=== PATIENT | female | born 1990 | race Caucasian/White ===

== ENCOUNTER 2022-02-21 13:40 | Emergency (ER) | payer OTHER, SELFPAY ==
[2022-02-21 13:51] VITALS: BP 152/115; PULSE 85; RESP 18; TEMP 36.6; O2SAT 100; BMI 32.5
[2022-02-21 14:43] VITALS: BP 132/94; PULSE 80; RESP 22; TEMP 37.3; O2SAT 99
--- NOTE | 2022-02-21 15:01 | CRLHL7_ITS ---
For Patients: As a result of the Century Cures Act, medical imaging exams and procedure reports are released immediately into your electronic medical record. You may view this report before your referring provider. If you have questions, please contact your health care provider. INDICATION: SOB TECHNIQUE: Chest 2 views. COMPARISON: None. FINDINGS: Cardiovascular and mediastinum: Heart size and vasculature are normal in caliber and appearance. Mediastinum is within normal limits. Lungs and pleural spaces: Lungs are clear. No sign of infiltrate or mass. No sign of pleural effusion. No pneumothorax. Bones and soft tissues: No significant findings. IMPRESSION: Unremarkable chest. Dictated by: Jim Lewis MD @ 02/21/2022 15:33:15 (Electronically Signed)
--- NOTE | 2022-02-21 15:03 | ED.GENADULT ---
HPI - General Adult General Chief complaint: Unspecified Complaint, Adult Stated complaint: Difficulty breathing,dizzy Time Seen by Provider: 02/21/22 14:37 History of Present Illness HPI narrative: This 31-year-old female comes in reporting a couple weeks of episodes of feeling short of breath and lightheaded. She attach is anxiety she to each of these episodes. She states that she has a history of some anxiety that she has learned to deal with in the past but over the past couple weeks and more recently in the kit past couple days she is having these symptoms. She does not report any fevers or cough. She states that she feels short of breath but it is not that she cannot move air it is more that she feels her breathing isn't right. She states that her mother was diagnosed with a lung cancer that led to more more health problems. Some of this family history contributes to her her anxiety today. Related Data Previous Rx's Medication Instructions Recorded lorazepam 0.5 mg tablet (Ativan) 0.5 mg PO BID PRN #10 tabs 02/21/22 Allergies Allergy/AdvReac Type Severity Reaction Status Date / Time No Known Drug Allergies Allergy Verified 02/21/22 13:55 Review of Systems Status of ROS: Reports: 10 or more systems reviewed and unremarkable except as noted in History and below Narrative: Constitutional: No fevers, no weight gain or loss. Eyes: No discharge. No vision changes. HENT: No congestion, no sore throat, no ear pain. Cardiovascular: No chest pain, no palpitations. Respiratory: No wheezes, no cough. She reports shortness of breath at which she clarifies as a feeling like she is not moving air well enough. Gastrointestinal: No abdominal pain, no vomiting, no diarrhea. Genitourinary: No dysuria, no hematuria. Musculoskeletal: Normal range of motion. Skin: No rashes, no pruritis. Neurological: No weakness, sensory change, speech change. She has some lightheadedness symptoms at times. Endo/Heme/Allergies: No bruising or bleeding. No polydipsia. Pysch: no suicidality, no insomnia. She reports anxiety symptoms. All other systems reviewed and are negative. PFSH PFSH Social History Smoking Status: Never smoker How often do you have a drink containing alcohol: monthly or less AUDIT-C Alcohol total score: 1 Non-prescribed substance use: denies use Exam Narrative: Exam Narrative: Constitutional: Well-developed, well-nourished, no acute distress. HEENT: Normocephalic, atraumatic. Neck: Normal range of motion. Nontender. Supple. Heart: Regular. No murmurs. Normal rate. Intact distal pulses. Lungs: Clear to auscultation. No chest discomfort. No wheezes, rhonchi, or rales. Abdomen: Normal bowel sounds. Nontender. No rebound tenderness. Genitalia: Deferred. Back: No midline tenderness. Normal range of motion. Extremities: Normal range of motion. No injury. Skin: Intact. No rash. Warm. No erythema or pallor. Neurologic: No altered sensation. No weakness. Alert and oriented. Psychiatric: No suicidality. No depression. No insomnia. She displays anxiety regarding these symptoms she is describing. Nursing notes and vitals signs are reviewed. Const: Vital Signs, click to edit/add: Vital Signs - 24 hr 02/21/22 13:51 02/21/22 14:43 Temperature 98 F 99.1 F Pulse Rate [Right Pulse Oximeter] 85 80 Respiratory Rate Blood Pressure [Ri ght Upper Arm] 152/115 H 132/94 H Pulse Oximetry 100 99 Oxygen Delivery Me thod Room Air Room Air Course Vital Signs Vital signs: Initial Vital Signs Temperature 98 F 02/21/22 13:51 Temperature Source Temporal Artery Scan 02/21/22 13:51 Pulse Rate 85 02/21/22 13:51 Respiratory Rate 18 02/21/22 13:51 Blood Pressure 152/115 H 02/21/22 13:51 Blood Pressure Mean 127 02/21/22 13:51 Blood Pressure Position Sitting 02/21/22 13:51 Pulse Oximetry 100 02/21/22 13:51 Oxygen Delivery Method 02/21/22 13:51 Vital Signs Temperature 98 F 02/21/22 13:51 Pulse Rate 85 02/21/22 13:51 Respiratory Rate 18 02/21/22 13:51 Blood Pressure 152/115 H 02/21/22 13:51 Pulse Oximetry 100 02/21/22 13:51 Oxygen Delivery Method 02/21/22 13:51 Temperature 99.1 F 02/21/22 14:43 Pulse Rate 80 02/21/22 14:43 Respiratory Rate 22 02/21/22 14:43 Blood Pressure 132/94 H 02/21/22 14:43 Pulse Oximetry 99 02/21/22 14:43 Oxygen Delivery Method 02/21/22 14:43 Medical Decision Making MDM Narrative Medical decision making narrative: This patient comes in with nonspecific reports of episodes of shortness of breath and lightheadedness. These symptoms are accompanied with anxiety however the patient states that she really is not an anxious person. However she has been dealing with her mother's lung cancer diagnosis for. Her mother is doing well but she wonders if she might have something by way of family history. She also states that she has taken on extra rolls at work and is managing lots of stressful situations in generally does pretty well with this. A chest x-ray and labs were ordered and these returned with all normal results. This was very reassuring to the patient. I advised her to follow-up with her primary physician. I did provide a prescription for 10 tablets of Ativan 0.5 mg that can be used as needed and directed. She understands that any further use of this type of medicine will need to come from her regular doctor. Lab Data Labs: Lab Results 02/21/22 02/21/22 02/21/22 Range/Units 15:16 15:16 15:16 WBC 6.41 (4.50-11.00) K/uL RBC 4.13 (4.00-5.20) m/uL Hgb 13.6 (12.0-16.0) gm/dL Hct 38.5 (33.0-51.0) % MCV 93 (80-100) fL MCH 33 (26-34) pg MCHC 35 (32-36) gm/dL RDW Coeff of Danial 11.6 (11.5-15.5) % Plt Count 177 (140-440) K/uL Neut % (Auto) 56.8 (42.0-72.0) % Lymph % (Auto) 32.1 (20-44) % [place] % (Auto) 6.6 (0.0-11.0) % Eos % (Auto) 3.3 (0.0-7.0) % Baso % (Auto) 0.6 (0.0-3.0) % Neut # (Auto) 3.64 (1.7-7.0) K/uL Lymph # (Auto) 2.06 (0.90-2.90) K/uL [place] # (Auto) 0.40 (0.00-0.90) K/UL Eos # (Auto) 0.21 (0.00-0.50) K/uL Baso # (Auto) 0.04 (0.00-0.30) K/uL Abs Immat Gran (auto) 0.04 (0.00-0.30) K/uL Sodium 137 (135-149) mmol/L Potassium 3.9 (3.6-5.1) mmol/L Chloride 103 (96-114) mmol/L Carbon Dioxide 25 (20-32) mmol/L BUN 15 (5-24) mg/dL Creatinine 0.8 (0.5-1.5) mg/dL Estimated Creat Clear 104.53 Estimated GFR 100 ml/min Glucose 107 (60-115) mg/dL Calcium 9.0 (8.4-10.6) mg/dL C-Reactive Protein 0.5 (0.5-1.0) mg/dL Imaging Data Chest x-ray: Radiologist's impression: Unremarkable chest. Discharge Plan Discharge Clinical Impression: Anxiety Condition: Stable Instructions: Anxiety (ED) Additional Instructions: Take medication as needed and prescribed. Follow up with primary physician or return if worsening. Prescriptions: New lorazepam [Ativan] 0.5 mg tablet 0.5 mg PO BID PRNQty: 10 0RF Follow Up/Referrals: Provider,Not a Local [Primary Care Provider] - Stand Alone Forms: [employer] Info Instructions
[2022-02-21 15:22] LABS: Basophils Absolute Auto 0.04 K/uL (0.00-0.30); Basophils Percent Auto 0.6 % (0.0-3.0); Eosinophils Absolute Auto 0.21 K/uL (0.00-0.50); Eosinophils Percent Auto 3.3 % (0.0-7.0); Hematocrit 38.5 % (33.0-51.0); Hemoglobin* 13.6 gm/dL (12.0-16.0); Immature Granulocytes Abs Auto 0.04 K/uL (0.00-0.30); Lymphocytes Absolute Auto 2.06 K/uL (0.90-2.90); Lymphocytes Percent Auto 32.1 % (20-44); Mean Corpuscular HGB Conc 35 gm/dL (32-36); Mean Corpuscular Hemoglobin 33 pg (26-34); Mean Corpuscular Volume 93 fL (80-100); Monocytes Percent Auto 6.6 % (0.0-11.0); Neutrophils Absolute Auto 3.64 K/uL (1.7-7.0); Neutrophils Percent Auto 56.8 % (42.0-72.0); Platelet Count* 177 K/uL (140-440); RDW Coefficient of Variation % 11.6 % (11.5-15.5); Red Blood Count 4.13 m/uL (4.00-5.20); White Blood Count* 6.41 K/uL (4.50-11.00)
[2022-02-21 15:35] LABS: Chloride* 103 mmol/L (96-114); Potassium* 3.9 mmol/L (3.6-5.1); Sodium* 137 mmol/L (135-149)
[2022-02-21 15:38] LABS: Blood Urea Nitrogen* 15 mg/dL (5-24); Carbon Dioxide* 25 mmol/L (20-32); Creatinine* 0.8 mg/dL (0.5-1.5); Est. Creatinine Clearance* 104.53; Estimated Glomerular Filt Rate 100 ml/min; Glucose* 107 mg/dL (60-115)
[2022-02-21 15:42] LABS: C Reactive Protein* 0.5 mg/dL (0.5-1.0)
[2022-02-21 15:50] LABS: Slide Review Reflex No
== END 2022-02-21 16:30 | disposition home or self-care (01) ==
PROVIDERS: Emergency Provider Emergency Medicine Emergency Medical Services
DX: F41.9 Anxiety disorder, unspecified (principal)
CPT/HCPCS: 36415; 71046; 80048; 85025; 86140; 99283; 99284

== ENCOUNTER 2024-08-28 22:40 | Emergency (ER) | payer OTHER, SELFPAY ==
--- OUTSIDE RECORDS SUMMARY | 2024-08-28 22:42 | XMS_ITS | Data Portability ---
Author Organization SHRAVAN Silver INTERVENTIONAL CARDIOLOGIST, [id number] Address [address] [address] Care Team Providers Care Manager [employer]mer [employer]eral Director Name Role Phone CONNER FERNANDEZ Primary Care Provider Assessment Encounter Date Assessment Date Assessment LastModified by Organization Details LastModified Time 06/30/2021 06/30/2021 I spent a total of 30 minutes providing care for this patient including: preparing to see the patient, obtaining a medical history, completing a medically appropriate physical exam, completing documentation of visit information and plans in the EMR, counseling the patient and/or caregiver regarding her diagnosis, treatment options and follow up plans, as well as any necessary communication of subsequent test results to the patient, , , sharmila Not available 07/05/2021 09:54:54 Plan of Treatment Reminders Order Date Submit Date Provider Last Modified By Organization Details Last Modified Time Details Appointments None recorded. Lab pap, LB + HR HPV 2024 025 [facility], [address] [place] [address], [id number], [place], [address], 5 14:20:04 bacterial vaginosis + vaginitis panel, vaginal 2023 024 sharmila [email or web address] [facility], [address], [address], [place], [address], 4 17:29:34 Referral None recorded. Procedures None recorded. Surgeries None recorded. Imaging None recorded. Medication Orders None recorded. Patient TargetsNo targets recorded. Patient Instructions Encounter Date Encounter Id Patient Instructions Last Modified By Organization Details Last Modified Time 04/09/2023 [id number] - Discussed hysterectomy surgery and what to expect, would plan to remove cervix, uterus, and bilateral tubes. Reviewed options. Desires hysterectomy - Discussed expected recovery from hysterectomy sharmila Not available 04/25/2023 12:57:41 05/24/2023 [id number] - Maintain a hea lthy diet and exercise, keep yourself hydrated. - No intercourse and no lifting more than 35 pounds. - You can rub coconut oil or vitamin e oil on your incision to help with the healing. - RTC in 1 month jenniferamilcar Not available 05/24/2023 12:15:45 - Reviewed post- op incision care. We discussed post-op exercise and restrictions. She may resume {{no light* modified normal}} activity. - Discussed that light bleeding is [place] [id number] Not available 05/24/2023 12:16:12 08/05/2024 [id number] learning about depression screening chriskyle Not available 08/05/2024 12:09:58 [facility] Not available 08/05/2024 12:09:58 learning about stress [facility] Not available 08/05/2024 12:09:58 breast self-exam : care instructions laura Not available 08/05/2024 12:09:58 Cervical Cancer Screening: Women should begin having a Pap smear at age 21. Women aged 21-29 should be screened every 3 years. Women aged 30-65 should be screened every 3-5 years. Your doctor may stop performing pap smear screenings if you have had a hysterectomy or are age 65 or above, if you meet certain criteria: Three consecutive negative cytology results or two consecutive negative HPV results within the previous 10 years with the most recent test within the past 5 years. No history of a high-grade precancerous lesions (cervical intraepithelial neoplasia grade 2 or grade 3 or cervical cancer within the past 20 years). Screening for Sexually Transmitted Diseases: Chlamydia and Gonorrhea are two of the most common sexually transmitted diseases with 75% of Chlamydial and 68% of Gonococcal infections showing no symptoms. Women should be screened for Chlamydia and Gonorrhea that are age 25 and under or women over age 25 at increased or special risk. Women should be screened for HIV aged 13-64 or at increased risk. 84% of cases are attributed to heterosexual sex. Women at increased or special risk or requesting STI screening should be screened for Hepatitis B and C, Syphilis, Herpes, Trichomonas. Vaccination Recommendations for Ages 27-45: Screenings for vaccination status should be based on the CDC Adult Vaccine Schedule. Recommendations include seasonal flu vaccine, Hepatitis A&B, and the Varicella series for those who are unvaccinated and have no history of infection. Completion of the HPV vaccine can be considered if desired and you have not been previously vaccinated. All eligible women should receive full vaccination against COVID-19. If you are actively attempting , you should not receive live vaccines. Contraception Information: If you are considering or participating in a heterosexual relationship involving vaginal intercourse it is recommended that you have a gynecologic visit to discuss contraception if you do not wish to become now. Your visit will include a discussion about which contraception option is best for you based on your medical history, ease of use and personal preference. Once a method is identified as the best option, your healthcare provider will provide education on how to most effectively use the method chosen, when to start, possible side effects and efficacy at preventing . If you wish to discontinue or change to another method of contraception, please discuss possible options with your healthcare provider. Hereditary Cancer Screening: Your provider will review your family history of any cancers in your first- and second-degree relatives if you know that information. A referral for genetic counseling may be made if your family history includes a diagnosis of cancer at a young age, multiple cancers of the same type in different family members of the same side, or multiple primary cancers in one individual, or multiple family members on the same side affected by a combination of breast, ovarian, endometrial, and/or gastrointestinal cancers. Preconception Counseling: If you are of reproductive age who are actively planning or not preventing should have a visit to discuss their reproductive plan. The goals of this visit are to identify any risks or barriers to healthy outcomes and to receive education on possible options for health management to reduce any risks prior to becoming . Your provider will ask you about your health history in order to identify possible chronic medical conditions that should be optimized prior to for better outcomes and will make referrals if needed. Your provider will also review the medications that you are currently taking that may be harmful in and talk with you about any that may need to be stopped. Your provider will review your vaccination status with you to identify if there are any that may be recommended as well as discuss substance abuse and possible environmental exposures. Family history will be obtained to identify any potential inheritable conditions and refer you to a genetic counselor if necessary. Your provider will ask you to start taking a folic acid supplementation of 400-800mcg daily to prevent neural tube defects if there is a chance you may become . Genetic Testing for Inheritable Disorders (Carrier Screening): The [employer] recommends that all women, and preferably all women with a desire to become , consider having a blood test to assess their risk of carrying a baby with a significant inherited disorder, such as cystic fibrosis. This test only needs to be performed once in a lifetime (assuming there are no improvements in testing in the future). A positive test indicates that there is a risk for the disease, however, a baby can only be affected with the disease if both parents carry the same gene. Therefore, the father of the baby would also need to be tested. [email or web address] Not available 08/04/2024 10:29:55 Foing well [email or web address] Not available 08/16 22:57:58 Reason for Referral None Reported. Results Created Date Observation Date Name Description Value Unit Range Abnormal Flag Note LastModifiedBy Organization Detail LastModifiedTime 06/14/2006/15/2021 CBC WITH DIFFE RENTI AL/PL ATELE T WBC 7.8 x10e3 /uL 3.4-10 .8 Not Available [facility] ([facility]) [address] [place], [address], 06/16/2021 08:17:28 06/14/20 21 06/15/2021 CBC WITH DIFFE RENTI AL/PL ATELE T RBC 4.63 x10e6 /uL 3.77-5 .28 Not Available [facility] ([facility]) [address] [place], [address], 06/16/2021 08:17:28 06/14/20 21 06/15/2021 CBC WITH DIFFE RENTI AL/PL ATELE T hemoglobin 15.4 g/dL 11.1-1 5.9 Not Available [facility] ([facility]) [address] [facility], [place], [address], 06/16/2021 08:17:28 06/14/20 21 06/15/2021 CBC WITH DIFFE RENTI AL/PL ATELE T hematocrit 43.6 % 34.0-4 6.6 Not Available [facility] ([facility]) [address] [facility], [place], [address], 06/16/2021 08:17:28 06/14/20 21 06/15/2021 CBC WITH DIFFE RENTI AL/PL ATELE T MCV 94 fL 79-97 Not Available [facility] ([facility]) [address] [facility], [place], [address], 06/16/2021 08:17:28 06/14/20 21 06/15/2021 CBC WITH DIFFE RENTI AL/PL ATELE T MCH 33.3 pg 26.6-3 3.0 above high normal Not Available [facility] ([facility]) [address] [facility], [place], [address], 06/16/2021 08:17:28 06/14/20 21 06/15/2021 CBC WITH DIFFE RENTI AL/PL ATELE T MCHC 35.3 g/dL 31.5-3 5.7 Not Available [facility] ([facility]) [address] [facility], [place], [address], 06/16/2021 08:17:28 06/14/20 21 06/15/2021 CBC WITH DIFFE RENTI AL/PL ATELE T RDW 11.9 % 11.7-1 5.4 Not Available [facility] ([facility]) [address] [facility], [place], [address], 06/16/2021 08:17:28 06/14/20 21 06/15/2021 CBC WITH DIFFE RENTI AL/PL ATELE T platelets 194 x10e3 /uL 150-45 0 Not Available [facility] ([facility]) [address] [facility], [place], [address], 06/16/2021 08:17:28 06/14/20 21 06/15/2021 CBC WITH DIFFE RENTI AL/PL ATELE T neutrophils 49 % not estab. Not Available [facility] ([facility]) [address] [facility], [place], [address], 06/16/2021 08:17:28 06/14/20 21 06/15/2021 CBC WITH DIFFE RENTI AL/PL ATELE T lymphs 39 % not estab. Not Available [facility] ([facility]) [address] [facility], [place], [address], 06/16/2021 08:17:28 06/14/20 21 06/15/2021 CBC WITH DIFFE RENTI AL/PL ATELE T monocytes 9 % not estab. Not Available [facility] ([facility]) [address] [facility], [place], [address], 06/16/2021 08:17:28 06/14/20 21 06/15/2021 CBC WITH DIFFE RENTI AL/PL ATELE T eos 2 % not estab. Not Available [facility] ([facility]) [address] [facility], [place], [address], 06/16/2021 08:17:28 06/14/20 21 06/15/2021 CBC WITH DIFFE RENTI AL/PL ATELE T basos 1 % not estab. Not Available [facility] ([facility]) [address] [facility], [place], [address], 06/16/2021 08:17:28 06/14/20 21 06/15/2021 CBC WITH DIFFE RENTI AL/PL ATELE T immature cells CLOUD SOLUTIONS ARCHITECT Not Available [facility] ([facility]) [address] [facility], [place], [address], 06/16/2021 08:17:28 06/14/20 21 06/15/2021 CBC WITH DIFFE RENTI AL/PL ATELE T neutrophils (absolute) 3.9 x10e3 /uL 1.4-7. 0 Not Available [facility] ([facility]) [address] [place], [address], 06/16/2021 08:17:28 06/14/20 21 06/15/2021 CBC WITH DIFFE RENTI AL/PL ATELE T lymphs (absolute) 3.1 x10e3 /uL 0.7-3. 1 Not Available [facility] ([facility]) [address] [place], [address], 06/16/2021 08:17:28 06/14/20 21 06/15/2021 CBC WITH DIFFE RENTI AL/PL ATELE T monocytes(ab solute) 0.7 x10e3 /uL 0.1-0. 9 Not Available [facility] ([facility]) [address] [place], [address], 06/16/2021 08:17:28 06/14/20 21 06/15/2021 CBC WITH DIFFE RENTI AL/PL ATELE T eos (absolute) 0.2 x10e3 /uL 0.0-0. 4 Not Available [facility] ([facility]) [address] [place], [address], 06/16/2021 08:17:28 06/14/20 21 06/15/2021 CBC WITH DIFFE RENTI AL/PL ATELE T baso (absolute) 0.1 x10e3 /uL 0.0-0. 2 Not Available [facility] ([facility]) [address] [place], [address], 06/16/2021 08:17:28 06/14/20 21 06/15/2021 CBC WITH DIFFE RENTI AL/PL ATELE T immature granulocytes 0 % not estab. Not Available [facility] ([facility]) [address] [place], [address], 06/16/2021 08:17:28 06/14/20 21 06/15/2021 CBC WITH DIFFE RENTI AL/PL ATELE T immature grans (abs) 0.0 x10e3 /uL 0.0-0. 1 Not Available [facility] ([facility]) [address] [facility], [place], [address], 06/16/2021 08:17:28 06/14/20 21 06/15/2021 CBC WITH DIFFE RENTI AL/PL ATELE T NRBC [employer] ARCHITECT Not Available [facility] ([facility]) [address] [facility], [place], [address], 06/16/2021 08:17:28 06/14/20 21 06/15/2021 CBC WITH DIFFE RENTI AL/PL ATELE T hematology comments: [employer]D SOLUT[employer] ARCHITECT Not Available [facility] ([facility]) [address] [facility], [place], [address], 06/16/2021 08:17:28 06/14/20 21 06/15/2021 LIPID PANEL cholesterol, total 166 mg/dL 100-19 9 Not Available [facility] ([facility]) [address] [facility], [place], [address], 06/16/2021 08:17:29 06/14/20 21 06/15/2021 LIPID PANEL triglyceride s 46 mg/dL 0-149 Not Available [facility] ([facility]) [address] [place], [address], 06/16/2021 08:17:29 06/14/20 21 06/15/2021 LIPID PANEL HDL cholesterol 75 mg/dL >39 Not Available [facility] ([facility]) [address] [place], [address], 06/16/2021 08:17:29 06/14/20 21 06/15/2021 LIPID PANEL VLDL cholesterol claritza 10 mg/dL 5-40 Not Available [facility] ([facility]) [address] [facility], [place], [address], 06/16/2021 08:17:29 06/14/20 21 06/15/2021 LIPID PANEL LDL chol calc ([facility]) 81 mg/dL 0-99 Not Available [facility] ([facility] [address] [place], [address], 06/16/2021 08:17:29 06/14/20 21 06/15/2021 LIPID PANEL comment: CL[employer] ARCHITECT Not Available [facility] ([facility]) [address] [facility], [place], [address], 06/16/2021 08:17:29 06/14/20 21 06/15/2021 HEMOG LOBIN A1C hemoglobin A1C 4.8 % 4.8-5. 6 Predi abete s: 5.7 - 6.4 Diabe iwona: >6.4 Glyce mal contr ol for adult s with diabe iwona: <7.0 Not Available [facility] ([facility]) [address] [facility], [place], [address], 06/16/2021 08:17:29 06/14/2006/15/2021 THYRO ID CASCA DE PROFI LE TSH 1.440 uIU/m L 0.450- 4.500 No appar ent thyro id disor randy. Addit ional testi ng not indic ated. In rare insta nces, Secon hanna Hypot hyroi dism as well as Subcl inica l Hypot hyroi dism have been repor holly in some patie nts with niesha l TSH value s. Not Available [facility] ([facility]) [address] [facility], [place], [address], 06/16/2021 08:17:30 06/14/2006/16/2021 BHARATH W/REF MER IF POSIT RIN BHARATH direct Negati ve negati ve Not Available [facility] ([facility]) [address] [place], [address], 06/16/2021 08:17:30 06/14/20 21 06/16/2021 IGP, APT HPV,R FX 16/18 ,45 interpretati on NILM NEGAT RIN FOR INTRA EPITH ELIAL LESIO N OR MALIG SABINA . Not Available [facility] ([facility]) [address] [facility], [place], [address], 06/17/2021 06:26:37 06/14/20 21 06/16/2021 IGP, APT HPV,R FX 16/18 ,45 category: NIL Negat rin for Intra epith elial Lesio n Not Available [facility] ([facility]) [address] [facility], [place], [address], 06/17/2021 06:26:37 06/14/2006/16/2021 IGP, APT HPV,R FX 16/18 ,45 adequacy: ENDO Satis facto ry for evalu ation . Endoc ervic al and/o r squam ous metap lasti c cells (endo cervi claritza compo nent) are prese nt. Not Available [facility] ([facility]) [address] [facility], [place], [address], 06/17/2021 06:26:37 06/14/2006/16/2021 IGP, APT HPV,R FX 16/18 ,45 clinician provided ICD10: Kimberly hanson Z12.4 Z83.2 Z13.0 Z13.2 20 Z13.1 Z13.2 9 Not Available [facility] ([facility]) [address] [place], [address], 06/17/2021 06:26:37 06/14/20 21 06/16/2021 IGP, APT HPV,R FX 16/18 ,45 performed by: Kimberly rodriguez, Cytomargie hanson (ASCP ) Not Available [facility] ([facility]) [address] [place], [address], 06/17/2021 06:26:37 12/28/20 21 06/16/2021 IGP, APT HPV,R FX 16/18 ,45 note: Commen t The Pap smear is a scree kim test desig maggy to aid in the detec tion of robson ligna nt and malig nant condi tions of the uteri ne cervi x. It is not a diagn ostic proce dure and shoul d not be used as the sole means of detec ting cervi claritza cance r. Both false -posi tive and false -nega tive repor ts do occur . Not Available [facility] ([facility]) [address] [place], [address], 06/17/2021 06:26:37 06/14/2006/16/2021 IGP, APT HPV,R FX 16/18 ,45 test methodology: Commen t This liqui d based ThinP rep(R ) pap test was scree maggy with the use of an image guide will vinson. Not Available [facility] ([facility]) [address] [facility], [place], [address], 06/17/2021 06:26:37 06/14/2006/17/2021 IGP, APT HPV,R FX 16/18 ,45 HPV aptima Negati ve negati ve This nucle ic acid ampli ficat ion test detec ts fourt een high- risk HPV types (16,1 8,31, 33,35 ,39,4 5,51, 52,56 ,58,5 9,66, 68) witho ut diffe renti ation . Not Available [facility] ([facility]) [address] [place], [address], 06/17/2021 06:26:37 06/14/2006/14/2021 bacte rial vagin osis + vagin itis panel , vagin al gardnerella Postiv e negati ve abnormal Not Available [id number] rtners_nafisa le [address] [address], [place], [address], 06/14/2021 16:48:58 06/14/20 21 06/14/2021 bacte rial vagin osis + vagin itis panel , vagin al trichomonas Negati ve negati ve normal Not Available [id number]_zurxwnbamie abrams [address] [address], [place], [address], 06/14/2021 16:48:58 06/14/20 21 06/14/2021 bacte rial vagin osis + vagin itis panel , vagin al dragan Negati ve negati ve normal Not Available [id number]_eerphdu latosha [address] [address], [place], [address], 06/14/2021 16:48:58 06/21/19 24 06/21/2023 bacte rial vagin osis + vagin itis panel , vagin al gardnerella POSITI VE negati ve abnormal Not Available [email or web address] [facility] [address] [address], [place], [address], 06/21/2023 13:25:12 06/21/19 24 06/21/2023 bacte rial vagin osis + vagin itis panel , vagin al trichomonas negati ve negati ve normal Not Available [id number] [address] [address], [place], [address], 06/21/2023 13:25:12 06/21/19 24 06/21/2023 bacte rial vagin osis + vagin itis panel , vagin al dragan negati ve negati ve normal Not Available [id number] [address] [address], [place], [address], 06/21/2023 13:25:12 08/05/19 25 08/05/2024 HPV AND GYNEC OLOGI C CYTOL OGY PANEL human papilloma virus 16 DNA Negati ve negati ve Not Available [address], [place], [address], 08/11/2024 14:20:04 08/05/19 25 08/05/2024 HPV AND GYNEC OLOGI C CYTOL OGY PANEL human papilloma virus 18 DNA Negati ve negati ve Not Available [address], [place], [address], 08/11/2024 14:20:04 08/05/19 25 08/05/2024 HPV AND GYNEC OLOGI C CYTOL OGY PANEL human papilloma virus other Negati ve negati ve Not Available [address], [place], [address], 08/11/2024 14:20:04 08/05/19 25 08/05/2024 HPV AND GYNEC OLOGI C CYTOL OGY PANEL final diagnosis See note below This patie nt's sampl e is negat rin for high risk HPV DNA. METHO DOLOG Y: The BD COR syste m uses autom ated extra ction , simul taneo us ampli ficat ion of HPV (E6/E 7 oncog jossy) and beta- globi n, follo wed by real time detec tion of fluor escen t label ed HPV and beta globi n using speci fic oligo nucle otide probe s. The test speci fical ly ident ifies types HPV 16 DNA and HPV 18 DNA while concu rrent ly detec ting the rest of the high risk types (31, 33, 35, 39, 45, 51, 52, 56, 58, 59, 66 or 68). COMME NTS: This test is not inten ded for use as a scree kim devic e for woman under age 30 with niesha l cervi claritza cytol ogy. Resul ts shoul d be corre lated with cytol ogic and histo logic findi ngs. Close clini claritza follo w up is recom keren ashli Pleas e see the separ ate Gynec ologi c Cytol ogy (Pap) repor t from the same [facility] date. Not Available [address], [place], [address], 08/11/2024 14:20:04 08/05/19 25 08/05/2024 GYNEC OLOGI C CYTOL OGY PAP SMEAR gynecologic cytology SEE RESULT S BELOW SPECI MEN SOURC E [place] ing Vagin a BKR LAB AP INSTRUMENT INSPECTOR INTER PRETA TION: Negat rin for Intra epith elial Lesio n or Travis durán (NILM ) Elect tal vasquez gracie d by Chloe Ferrer M, CT (ASCP ) on 2024 at 1:17 PM Path repor [email or web address] ments Imp Spec: Papan icola ou Test Limit ation s: Cervi claritza cytol ogy is a scree kim test with limit ed sensi tivit y, and regul ar scree kim is criti claritza for cance r preve ntion . Pap tests are prima rily effec tive for the diagn osis/ preve ntion of squam ous cell carci noma, not adeno carci noma or other cance rs. BKR LAB AP INSTRUMENT INSPECTOR ADEQU ACY: Satis facto ry for evalu ation , endoc ervic al/tr ansfo rmati on zone compo nent absen t Path repor t.rel evant Hx Spec: compl ete hyste recto my BKR LAB AP LMP: hyst BKR LAB AP PREVI OUS ABNOR MAL: No BKR LAB AP PREVI OUS ABNL DX: negat rin Path repor [email or web address] ments Imp Spec: The techn ical compo nent of this testi ng was compl eted at [facility] . Stain contr ols for all stain s resul holly withi n this repor t have been revie wed and show appro priat e react ivity . BKR AP ASSOC IATED HPV REPOR T: Pleas e see the assoc iated HPV High Risk Types DNA Cervi claritza repor t for Speci men [id number] from the same colle ction date. Not Available [address], [place], [address], 08/11/2024 14:20:07 06/14/20 21 06/14/2021 US, pelvi s No observ ation record ed. calbertin Ary [address], [place], [address], 06/14/2021 18:59:59 Result Notes None recorded. 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 Procedures Surgical History Date Name Laterality Status Provider Name and Address Organization Details Recorded Time 08/05/19 [facility] Annual Well-Woman Visit age 18-39 [place] [address] [place] [address] completed Epi Young [facility] INTERVENTIONAL CARDIOLOGIST 08/04/2024 10:29:56 09/22/19 21 Date of Last Mammogram completed Penny Wall(TERM) [facility] INTERVENTIONAL CARDIOLOGIST 06/14/2021 15:08:00 06/18/19 19 Date of Last Pap Smear completed Penny Wall(TERM) [facility] INTERVENTIONAL CARDIOLOGIST 06/14/2021 15:08:25 laparoscopy completed Not Available [facility] 01/22/2020 05:09:21 Imaging Results Imaging Date Name Status LastModified by Organiz ation Details LastModified Time 06/14/2021 US, pelvis completed calbertin Ary [address], [place], [address], 06/14/2021 18:59:59 Procedure Notes None recorded. Medical Equipment None Reported. Allergies No known drug allergies Medications Name Sig Start Date Stop Date Status Note LastModified by Organization Details LastModified Time Mirena 21 mcg/24 hr (up to 8 years) 52 mg intrauterin e device 08/05 completed Not Available Not Available Not Available clindamycin HCl 300 mg capsule TAKE 1 CAPSULE BY MOUTH EVERY 12 HOURS FOR 7 DAYS 04/09 completed Not Available Not Available Not Available fluconazole 150 mg tablet TAKE 1 TABLET BY ORAL ROUTE ONCE EVERY 72HRS WHILE TAKING ANTIBIOTI C TO PREVENT YEAST INFECTION . 04/09 completed Not Available Not Available Not Available metronidazo le 0.75 % (37.5 mg/5 gram) vaginal gel INSERT 1 APPLICATO RFUL VAGINALLY EVERY DAY AT BEDTIME FOR 5 DAYS active Not Available Not Available No t Available hydromorpho ne 2 mg tablet TAKE 1-2 TABLETS BY MOUTH EVERY 4 HOURS NEEDED FOR MODERATE TO SEVERE PAIN active Not Available Not Available No t Available lorazepam 0.5 mg tablet TAKE 0.5 MG ORALLY TWICE A DAY NEEDED active Not Available Not Available No t Available Flagyl 500 mg tablet Take 1 tablet(s) twice a day by oral route as directed for 7 days. active Not Available Not Available No t Available metronidazo le 0.75 % topical cream Apply to face 2 TIMES PER DAY* 08/05 completed Not Available Not Available Not Available clindamycin 2 % vaginal cream PLACE 1 APPLICATO R VAGINALLY AT BEDTIME FOR 5 DAYS. 08/05 completed Not Available Not Available Not Available fluticasone propionate 50 mcg/actuati on nasal spray,suspe nsion instill 2 Sprays into both nostrils daily.* 08/05 completed Not Available Not Available Not Available sertraline 50 mg tablet TAKE 1 TABLET BY MOUTH EVERY DAY 04/09 completed Not Available Not Available Not Available oxycodone 5 mg tablet TAKE 1 TABLET BY MOUTH EVERY 4 HOURS NEEDED. *NOT COVERED active Not Available Not Available No t Available Vitals Date Recorded Body height Provider Name an d Address Organization Details Last Updated DateTime 06/30/2021 175.26 cm Deyanira Silver INTERVENTIONAL CARDIOLOGIST 0 06/30/2021 16:21:13 Date Recorded Body height Body mass index (BMI) Body weight Systolic blood pressure Diastolic blood pressure Provider Name and Address Organization Details Last Updated DateTime 06/21/2023 175.26 cm 37.1 kg/m2 439368.6 8 g 124 mm[Hg] 78 mm[Hg] Sonya Haq [place] [facility] C[facility] 4 12:22:15 Date Recorded Body weight Body mass index (BMI) Body height Systolic blood pressure Diastolic blood pressure Provider Name and Address Organization Details Last Updated DateTime 08/05/2024 983122.3 9 g 39 kg/m2 175.26 cm 136 mm[Hg] 84 mm[Hg] Deyanira Calvert [place] - [facility] INTER[facility]IONAL CARDIOLOGIST 5 11:45:49 Social History Question Answer Notes LastModified by Organizat ion Details LastModified Time Tobacco Smoking Status Former Smoker Penny Wall(TERM) null, [place] [facility] INTER[facility]ION[facility] CARDIOLOGIST 06/07/2021 13:04:28 Do You Have An Advance Directive? No [email or web address] Information not available 06/07/2021 What Is Your Level Of Alcohol Consumption? Moderate Information not available 08/04/2024 If You Are , What Was Your Level Of Alcohol Consumption Prior To ? None Information not available 08/04/2024 Are You Currently Sexually Active With Anyone Who Has Traveled (within The Last 12 Weeks) To A Zika-affected Area? No Information not available 08/04/2024 Are You Blind Or Do You Have Difficulty Seeing? No Information not available 08/04/2024 Is Blood Transfusion Acceptable In An Emergency? Yes Information not available 08/04/2024 What Is Your Level Of Caffeine Consumption? Moderate [email or web address] Information not available 06/14/2021 How Much Tobacco Do You Chew? None Information not available 08/04/2024 Are You Currently Employed? Yes Information not available 06/30/2021 Are You Deaf Or Do You Have Serious Difficulty Hearing? No Information not available 08/04/2024 What Type Of Diet Are You Following? REGULAR [email or web address] Information not available 06/07/2021 Do You Or Have You Ever Used E-cigarettes Or Vape? Never Used Electronic Cigarettes Information not available 08/04/2024 What Is The Highest Grade Or Level Of School You Have Completed Or The Highest Degree You Have Received? 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 No Information not available 08/04/2024 History Of Domestic Violence No Denies Any History Of Domestic Violence [email or web address] Information not available 01/26/2020 Spouse/Partners Name Jorge Information not available 08/04/2024 Marital Status Informatio n not available 06/30/2021 Performs Monthly Self-breast Exam? No Information not available 06/30/2021 What Is Your Relationship Status? [email or web address] Information not available 06/07/2021 Do You Use Your Seat Belt Or Car Seat Routinely? Yes [email or web address] Information not available 06/07/2021 Are You Sexually Active? Yes Information not available 06/30/2021 Do You Or Have You Ever Used Smokeless Tobacco? Never Used Smokeless Tobacco Information not available 08/04/2024 How Much Tobacco Do You Smoke? No Information not available 08/04/2024 Do You Feel Stressed (tense, Restless, Nervous, Or Anxious, Or Unable To Sleep At Night)? [id number] Information not available 08/04/2024 Do You Use Any Illicit Or Recreational Drugs? No Information not available 06/30/2021 Has Tobacco Cessation Counseling Been Provided? No Information not available 06/30/2021 How Many Years Have You Smoked Tobacco? 5 Information not available 08/04/2024 Do You Or Have You Ever Used Any Other Forms Of Tobacco Or Nicotine? No Information not available 06/30/2021 Sex: Unknown Functional Status Question Answer Note LastModified by Organizat ion Details LastModified Time Do you have difficulty walking or climbing stairs? No Information not available 08/04/2024 Do you have difficulty doing errands alone? No Information not available 08/04/2024 Do you have difficulty dressing or bathing? No Information not available 08/04/2024 What is your exercise level? Moderate [email or web address] Information not available 06/07/2021 Mental Status Question Answer Note LastModified by Organization D etails LastModified Time Do you have difficulty concentrating, remembering or making decisions? No Information no t available 08/04/2024 Family History Nothing Reported Notes:Family History of Hype rlipidemia ICD-9 V18.19 Medical History Condition Response Psych- Depression Y Gynecological History Statement/Question Response History of Abnormal PAP N Age at Menarche: 10 Date of Last Mammogram 09/21/2020 Date of Last Colonoscopy Date of LMP 06/09/2021 History of Sexually Transmitted Infectio n N Current Control Method Hysterectom y Date of Last Pap Smear 06/18/2018 Date of last bone density Obstetrics History GPAL:G 2 P 2 0 0 2 Type Value Multiple Births 0 Full Term 2 Induced 0 Spontaneous 0 Premature 0 Living 2 Ectopics 0 Total 2 Immunizations Vaccine Type Date Status Note Provider Nam e and Address Organization Details Recorded Time Influenza, split virus, quadrivalent, PF 04/19/2020 completed Deyanira Pourrier null, [place] [facility]ION[facility] C[facility] 06/30/2021 16:21:21 Tdap 06/25/2017 completed Deyanira Pourrier [place] [facility] C[facility] 06/30/2021 16:21:20 Tdap 04/01/2019 completed Deyanira Pourrier [place] [facility] C[facility] 06/30/2021 16:21:21 Influenza, split virus, quadrivalent, PF 04/01/2019 completed Deyanira Pourrier [place] [facility] C[facility] 06/30/2021 16:21:20 Influenza, split virus, quadrivalent, PF 04/02/2017 completed Deyanira Pourrier [place], [place] [facility] C[facility] 06/30/2021 16:21:21 Past Encounters Encounter ID Performer Location Encounter Start Date Encounter Closed Date Diagnosis/Indication Diagnosis SNOMED-CT Code Diagnosis ICD10 Code Diagnosis Note [id number] LYNNETTE SORENSEN PA-C [id number] JENNIFER Hoyos_SOFIYA E [address] [facility] [address] [place] [address] 06/14/2021 14:59:30 06/15/2021 08:54:48 Screening for malignant neoplasm of cervix 907753251 Z12.4 Family his tory of Autoimmune disease 483346092 Z83.2 Gynecologi c examination 42824665 Z01.419 Anemia screening 8194626 07 Z13.0 Hyperlipid emia screening 023299879 Z13.220 Diabetes m ellitus screening 581256072 Z13.1 Thyroid di sorder screening 902999727 Z13.29 Pain in pelvis 82009845 R10.2 Hx of Endometrio sis Vaginal odor 937897559 N 89.8 [id number] ROSSANA OLIVERA MD [id number] JENNIFER CHAVEZ E [address] [facility] [place] [address] 06/14/2021 16:29:21 06/14/2021 17:29:34 Pain in pelvis 40774739 R10.2 IUD check [id number] Conner Fernandez MD [id number] JENNIFER ARNOLD Y [facility],[address] [address] 06/30/2021 16:04:18 07/05/2021 10:00:11 Endometriosis of pelvis 22564852 N80.3 Pain in pelvis 07475408 R10.2 [id number] Conner Fernandez MD [id number]_UYI JENNIFER ARNOLD Y [facility],[address] [address] [address] 04/09/2023 10:55:19 04/27/2023 16:02:36 Dysmenorrhea 407481397 N94.6 Endometrio sis of pelvis 54128494 N80.9 [id number] Conner Fernandez MD [id number] JENNIFER ARNOLD Y [facility],[place] [address] [place] [id number] 05/24/2023 11:17:31 05/25/2023 10:40:47 Postoperative visit 991796037 Z09 [id number] Conner Fernandez MD [id number] JENNIFER ARNOLD Y [facility],[place] [address] [place] [id number] 06/21/2023 12:08:28 07/02/2023 09:43:18 Postoperative visit 603413592 Z09 Vaginitis 97519975 N76.0 [id number] Conner Fernandez MD [id number]_WTC JENNIFER MCNAIRWO OD [address] [facility] [place] [address] 08/05/2024 10:42:40 08/20/2024 10:32:01 Gynecologic examination 73197154 Z01.419 Screening for malignant neoplasm of cervix 136858402 Z12.4 Health Concerns Section Related Observation LastModified by Organization Detai ls LastModified Time None Recorded Concern Status LastModified by Organization Details LastModified Time None Recorded Advance Directives Directive N: Payers Encounter Date Sequence Insurance Name Policy Number Policy Wooten Covered Member ID Wooten Member ID Guarantor Name 06/30/2021 1 [email or web address] [id number] Glory heredia [id number] Glory Andrea 04/09/2023 1 [id number] Glory heredia [id number] Glory Andrea 05/24/2023 1 [id number] Glory heredia [id number] Glory Strangebert 06/21/2023 1 [id number] Glory heredia [id number] Glory Andrea 08/05/2024 1 [facility] [id number] Glory heredia [id number] Glory Andrea Notes Date Note Type Note Provider Name and Address Organization Details Recorded Time 06/30/2021 text/html This is a {{ 30# }} year old female, who is here for surgical consultation for {{_PROCEDURE REQUESTED_ Hysterecto my#}} for {{_REASON FOR SURGERY_ Endometriosi s#}}Doing well. Cuff intact. No restrictions. Multiple prior surgeries by Dr Rodriguez. Hx of infertilty and sever endo. [place] [address] [facility],[address], [place], [address], [facility] INTERVENTIONAL CARDIOLOGIST 07/05/2021 09:55:14 04/09/2023 text/html This is a {{ 32# }} year old female, who is here for surgical consultation for {{_PROCEDURE REQUESTED_ Hysterecto my#}} for {{_REASON FOR SURGERY_ endometriosi s#}}. - Had 3 prior laparoscopic surgeries for endometriosis- Tried Lupron for endometriosis prior to pregnancies- Has tried IUD w/o successHistory of deeply infiltrating endoWorsening pain with dyschezia, dysmenorrea, [place] [address] [facility],[address], [place], [address], [place] [facility] INTERVENTIONAL CARDIOLOGIST 04/25/2023 12:57:58 05/24/2023 text/html Surgery Date: {{ enter in date 05/09/23#}}.Sandy ent presents for her {{post-operative firs t post-operative* secon d post-operative third post-operative hyster oscopy follow-up}} evaluation.Surgical procedure: {{ Section Suction D&C Diagnostic Laparoscopy Robotic TLH, Bilateral Salpingectomy and Cystoscopy Hysterosco py, D&C and Endometrial ablation Tubal Ligation TVT-Placemen t TVT-O Vaginal Hysterectomy LAVH LAV H/BSO RoboticTLH Robo tic TLH, BSO with Cystoscopy Anterior & Posterior Repair a right oophorectomy a left oophorectomy Bilatera l Oophorectomy Dilation & Curettage Cystocele repair Rectocele repair mid-urethral sling Robotic assisted laparoscopic excision of endometriosis Robotic supracervical hysterectomy, Bilateral Salpingectomy, Sacralcolpopexy and Cystoscopy lysis of adhesions tubal dye study appendectomy cy stoscopy bilateral salpingo-ophorectomy sacrocervicopexy post erior repair perineorraphy Other: Robotic TLH, Bilateral Salpingectomy #}}.Indication: {{Missed AB Myomatous Uterus Pelvic Pain Dysmenorrhea Men orrhagia* Infertility Urinary stress incontinence Dysmenor blaze Post-menopausal bleeding Pelvic floor prolapse Cystocele Re ctocele Previous Breech Malpr esentation Failure to progress in labor Failure to descend distress Patient refusal of labor Failed induction of labor HELLP Syndrome Severe preeclampsia Other:}} .Pathology findings: {{benign* adenocarcin marilee products of conception FABRIZIO 1 FABRIZIO 2 FABRIZIO 3 simple hyperplasia with atypia simple hyperplasia without atypia complex hyperplasia with atypia complex hyperplasia without atypia endometriosis} }.The procedure was done by: {{DO Judith Menendez MD Thomas E. Grande, MD Conner A. Jim, MD* MD Lina Root MD Rachel S. Parritz, MD}}.- Some light bleeding, [place] [address] [facility],[address], [place], [address], [place] [facility] INTERVENTIONAL CARDIOLOGIST 05/24/2023 12:40:30 06/21/2023 text/html Surgery Date: {{ enter in date 05/09/23#}}.Sandy ent presents for her {{post-operative firs t post-operative* secon d post-operative third post-operative hyster oscopy follow-up}} evaluation.Surgical procedure: {{ Section Suction D&C Diagnostic Laparoscopy Robotic TLH, Bilateral Salpingectomy and Cystoscopy Hysterosco py, D&C and Endometrial ablation Tubal Ligation TVT-Placemen t TVT-O Vaginal Hysterectomy LAVH LAV H/BSO RoboticTLH Robo tic TLH, BSO with Cystoscopy Anterior & Posterior Repair a right oophorectomy a left oophorectomy Bilatera l Oophorectomy Dilation & Curettage Cystocele repair Rectocele repair mid-urethral sling Robotic assisted laparoscopic excision of endometriosis Robotic supracervical hysterectomy, Bilateral Salpingectomy, Sacralcolpopexy and Cystoscopy lysis of adhesions tubal dye study appendectomy cy stoscopy bilateral salpingo-ophorectomy sacrocervicopexy post erior repair perineorraphy Other: Robotic TLH, Bilateral Salpingectomy #}}.Indication: {{Missed AB Myomatous Uterus Pelvic Pain Dysmenorrhea Men orrhagia* Infertility Urinary stress incontinence Dysmenor blaze Post-menopausal bleeding Pelvic floor prolapse Cystocele Re ctocele Previous Breech Malpr esentation Failure to progress in labor Failure to descend distress Patient refusal of labor Failed induction of labor HELLP Syndrome Severe preeclampsia Other:}} .Pathology findings: {{benign* adenocarcin marilee products of conception FABRIZIO 1 FABRIZIO 2 FABRIZIO 3 simple hyperplasia with atypia simple hyperplasia without atypia complex hyperplasia with atypia complex hyperplasia without atypia endometriosis} }.The procedure was done by: {{DO Judith Menendez MD Thomas E. Grande, MD Conner A. Jim, MD* MD Lina Root MD Rachel S. Parritz, MD}}. [place] [address], [place], [address], [facility] [employer] INTERVENTIONAL CARDIOLOGIST 06/26/2023 12:56:54 08/05/2024 text/html [facility] Annual Well-Women Visit Age 30-39Reported bypatient.Relevant Family History:no family history of breast cancer; no family history of ovarian cancer; no family history of uterine cancer; no family history of colon cancer; no family history of blood clots/DVT Last Pap smear:last Pap smear was normal; last HPV negative; last Pap smear was done 3 years ago Contraceptive Method:contraceptive method: N/A hysterectomy Sexually Active:Yes: STI Screen:declines STI testing Menstrual cycle:amenorrhea S/[place] [address] [facility],[address], [place], [address], [employer] INTERVENTIONAL CARDIOLOGIST 08/16/2024 22:59:11 OBGyn Episode Ob Episode Information Episode Created Date Number of Fetuses Patient Bloodtype Patient rh Status Prepregnancy Weight lbs Domestic Partner Domestic Partner Phone Father Name Consumer Loan Officer Status 06/07/20 21 1 CLOSED Fetus Data First Name Last Name Admitted to NICU Weight (g) Sex Living Outcome Pediatric Complications Fetus ID Race Codes Race Delivery Type 3997.05 2704 M Full Term [id number] Dean Calculation Initial Dean Date Initial Exam Date Initial Exam Provider Initial Ultrasound Date Last Menstrual Period Date Ultra Sound Weeks Gestation 0 Eighteen To Twenty Week Dean Update Ultra Sound Date Fundal Height At Umbil Quickening Date Ultra Sound Latest Weeks Gestation Final Dean Confirmed By Final Dean Confirmed Date Final Dean Date Ultra Sound Latest Days Gestation 0 0 Menstrual History Last Menstrual Date Menses Monthly On Bcp Conception Prior Menses Frequency Hcg Plus Date Menarche Onset Age Delivery Information Delivery Date Delivery Type Labor Anesthesia Weeks Gestation Incision Type Labor Labor Length Hrs Delivered By Post Complications Tubal Sterilization Discharge Date Comments 0 false Discharge Information Feeding Method Contraceptive Method Maternal HG B and HCT Levels Ob Episode Information Episode Created Date Number of Fetuses Patient Bloodtype Patient rh Status Prepregnancy Weight lbs Domestic Partner Domestic Partner Phone Father Name Consumer Loan Officer Status 06/07/20 21 1 CLOSED Fetus Data First Name Last Name Admitted to NICU Weight (g) Sex Living Outcome Pediatric Complications Fetus ID Race Codes Race Delivery Type [id number] F Full Term [id number] Dean Calculation Initial Dean Date Initial Exam Date Initial Exam Provider Initial Ultrasound Date Last Menstrual Period Date Ultra Sound Weeks Gestation 0 Eighteen To Twenty Week Dean Update Ultra Sound Date Fundal Height At Umbil Quickening Date Ultra Sound Latest Weeks Gestation Final Dean Confirmed By Final Dean Confirmed Date Final Dean Date Ultra Sound Latest Days Gestation 0 0 Menstrual History Last Menstrual Date Menses Monthly On Bcp Conception Prior Menses Frequency Hcg Plus Date Menarche Onset Age Delivery Information Delivery Date Delivery Type Labor Anesthesia Weeks Gestation Incision Type Labor Labor Length Hrs Delivered By Post Complications Tubal Sterilization Discharge Date Comments 8 false Discharge Information Feeding Method Contraceptive Method Maternal HG B and HCT Levels
--- OUTSIDE RECORDS SUMMARY | 2024-08-28 22:42 | XMS_ITS | Clinical Summary ---
Author Organization [facility] Address [address] [place] [address] Care Team Providers Care Medical Transcription Name Role Phone Sonu Mayfield MD Primary Care Provider [phone] Source Comments You are receiving this document as you are listed as the primary care provider,follow-up provider, or the patient has been referred to you for consultation.This is in compliance with the Medicare and[facility] Hospital[facility] EHR Incentive Program,which states Providers who transition their patient to another setting of careor provider of care or refers their patient to another provider of care shouldprovide summary care record for each transition of care or referral. [facility] Allergies No known active allergies Medications fluticasone propionate (FLONASE) 50 MCG/ACT nasal solution Place 2 Sprays into both nostrils daily. 16 g 11 10/08/2023 Active Active Problems Problem Noted Date Diagnosed Date Fatty liver 10/08/2023 Overview (10/08/2023): Noted on 08/15/2023 CT through [facility]. Encouraged low fat diet and weight loss. Immunizations Immunization Administration Dates Next Due 4vHPV (Gardasil) 11/07/2006,08/23/2006, 6 Flu Vac (18-64 Yrs), Intradermal 04/22/2013 Flu Vac (3+ yrs) 05/04/2014,05/18/2006 Influenza (Flucelvax), Prese rv Free QIV 04/04/2018 Influenza IIV4 (Quadrivalent ) 0.5mL (17839) 04/19/2020,04/01/2019,04/02/2017,2015 MPSV4 (Menomune) 11/07/2006 Tdap 10/10/2022, 9,06/25/2017,2010 Family History Medical History Relation Name Comments Cancer, Lung Father Non-smoker Colon Polyps Father Hypertension Father Pacemaker Father 3rd degree AV b lock; large PFO Cancer, Lung Mother Lifelong smoker Coronary Artery Disease Mother Mult iple stents No Known Problems Sister 1 No Known Problems Sister 2 Cancer, Breast Negative Family History Cancer, Colon Negative Family History Relation Name Status Comments Father Alive Mother Paternal Grandmother Sister 1 Alive Sister 2 Alive Social History Tobacco Use Types Packs/Day Years Used Date Smoking Tobacco: Former Cigarettes S tarted: 06/18/2007 Comments:Smoked socially in college for 4-5 months while out. Alcohol Use Standard Drinks/Week Comments Not Currently 0 (1 standard drink = 0.6 oz pur e alcohol) Financial Resource Strain Answer Date R ecorded Is it hard for you to pay fo r the very basics like food, housing, medical care or heating? No 10/08/2023 Food Insecurity Answer Date Recorded Does your food run out before you have the money to buy more? No 10/08/2023 Transportation Needs Answer Date Record ed Does a lack of transportatio n keep you from your medical appointments or from getting your medications? No 024 Comments No Sex and Gender Information Value Date Recorded Sex Assigned at Not on file Legal Sex Female 2:34 PM CDT Gender Identity Not on file Sexual Orientation Not on file Last Filed Vital Signs Vital Sign Reading Time Taken Comments Blood Pressure 125/79 10/08/2023 9:59 AM CDT Pulse 69 10/08/2023 9:59 AM CDT Temperature - - Respiratory Rate 16 10/08/2023 9:59 AM CDT Oxygen Saturation - - Inhaled Oxygen Concentration - - Weight 114.3 kg (252 lb) 10/08/2023 9:59 AM CDT Height 173.9 cm (5' 8.47) 10/08/2023 9:59 AM CD T Body Mass Index 37.8 10/08/2023 9:59 AM CDT Plan of Treatment Health Maintenance Due Date Last Done Comments HPV Vaccine (3 - 3-dose series) 01/30/2007 11/07/2006, 08/23/2006, 05/18/2006 HepB (1) 08/26/2007 COVID-19 Vaccine ( - season) 2024 Influenza (#1) 2024 04/19/2020, 03/18, 04/04/2018, Additional history exists Adult Preventive Visit 10/07/2025 10/08/2023 Diabetes Screening- (based on age and BMI) 10/17/2026 10/18/2023, 10/10/2022 DTaP/Tdap/Td (5 - Tdap) 10/10/2032 10/11/19, 04/01/2019, 06/25/2017, Additional history exists Zoster/Shingles (1 of 2) 2038 MCV4 Aged Out 11/07/2006 No longer eligi ble based on patient's age to complete this topic HIV Screening (Preventive Services) Completed 10/08/2023 (Completed) Hep C Screening (Preventive Services) Completed 10/18/2023 HepA Aged Out No longer eligi ble based on patient's age to complete this topic Hib Aged Out No longer eligi ble based on patient's age to complete this topic IPV (Polio) Aged Out No longer eligi ble based on patient's age to complete this topic Meningococcal B Aged Out No longer el igible based on patient's age to complete this topic Pneumococcal Aged Out No longer eligi ble based on patient's age to complete this topic Procedures Procedure Name Priority Date/Time Associated Diagnosis Comments HGB A1C Routine 10/18/2023 7:00 AM CDT Diabetes mellitus screening HEPATITIS C ANTIBODY, WITH REFLEX Routine 10/18/2023 7:00 AM CDT Need for hepatitis C screening test from Last 3 Months or Most Recently Relevant to Health Maintenance Results * Hepatitis C Antibody, with Reflex (10/18/2023 7:00 AM CDT) Hepatitis C Antibody Negative (Non Reactive) Negative (Non Reactive) 10/18/2023 12:55 PM CDT [facility] Comment:Antibodies to HCV no t detected. Does not exclude the possiblity of exposure to HCV. Blood Venipuncture / Unknown 10/18/2023 7:00 AM CDT 10/18/2023 7:00 AM CDT Sonu Mayfield MD LAB_1 Final Result Performing Organization Address [facility] Co de Phone Number [facility] [address] * Hgb A1C (10/18/2023 7:00 AM CDT) Hemoglobin A1C 5.0 <=5.6 % 10/18/2023 2:03 PM CDT [facility] Estimated Average Glucose (Calc) 97 < 117 mg/dL 10/18/2023 2:03 PM T [facility] Comment:Estimated average gl ucose (eAG) converts A1c into glucose units (mg/dL) and estimates average glucose over the past approximately 3 months. The eAG reference interval (<117 mg/dL) corresponds to an A1c of <5.7%. Blood Venipuncture / Unknown 10/18/2023 7:00 AM CDT 10/18/2023 7:00 AM CDT Sonu Mayfield MD LAB_1 Final Result Performing Organization Address [facility] de Phone Number [facility] [address] from Last 3 Months or Most Recently Relevant to Health Maintenance Insurance [employer] Care Teams Medical Transcription Relationship Specialty [place] [address] [place] [address] PCP - General Family Practice 10/08/23
--- OUTSIDE RECORDS SUMMARY | 2024-08-28 22:42 | XMS_ITS | Clinical Summary ---
Author Organization [facility] Address [address] [place] [address] Care Team Providers Care Supervisor Wet Pour Name Role Phone No Ref-Primary, Physician Primary Care Provider Allergies Active Allergy Reactions Criticality Noted Date Comments Oxycodone-Acetaminophen Nausea 05/07/2023 Medications No known medications Social History Tobacco Use Types Packs/Day Years Used Date Smoking Tobacco: Never Smokeless Tobacco: Never Tobacco Cessation:Counseling Given: Not Answered Alcohol Use Standard Drinks/Week Comments Yes 0 (1 standard drink = 0.6 oz pur e alcohol) Adolescent Education Answer Date Record ed Getting School Help Needed Not on file 03/25 Comments No Sex and Gender Information Value Date Recorded Sex Assigned at Not on file Legal Sex Female 3:17 AM CHARACTER ACTOR Gender Identity Not on file Sexual Orientation Not on file Last Filed Vital Signs Vital Sign Reading Time Taken Comments Blood Pressure 124/88 08/15/2023 10:30 PM CHARACTER ACTOR Pulse 98 08/15/2023 10:30 PM CHARACTER ACTOR Temperature 36.9 C (98.4 F) 08/15/2023 6:39 PM CHARACTER ACTOR Respiratory Rate 11 08/15/2023 10:30 PM CHARACTER ACTOR Oxygen Saturation 99% 08/15/2023 10:30 PM CHARACTER ACTOR Inhaled Oxygen Concentration - - Weight 116.1 kg (256 lb) 05/09/2023 11:52 AM CHARACTER ACTOR Height - - Body Mass Index - - Plan of Treatment Health Maintenance Due Date Last Done Comments ADVANCE CARE PLANNING 1988 ANNUAL REVIEW OF HM ORDERS 1988 HIV SCREENING 08/26/2003 HEPATITIS C SCREENING 2006 HPV IMMUNIZATION (3 - 3-dose series) 01/30/2007 11/07/2006, 08/23/2006, 05/18/2006 HEPATITIS B IMMUNIZATION (1 of 3 - 19+ 3-dose series) 08/26/2007 YEARLY PREVENTIVE VISIT 10/11/2023 10/10/2022 COVID-19 Vaccine ( - season) 2024 INFLUENZA VACCINE (#1) 2024 , 04/01/2019, 04/04/2018, Additional history exists PHQ-2 (once per calendar year) 2024 GLUCOSE 08/15/2026 08/15/2023 HPV TEST 08/05/2029 08/05/2024 PAP 08/05/2029 08/05/2024, 08/05/2024 DTAP/TDAP/TD IMMUNIZATION (5 - Td or Tdap) 10/10/2032 10/10/2022, 04/01/2019, 06/25/2017, Additional history exists ZOSTER IMMUNIZATION (1 of 2) 2038 MENINGITIS IMMUNIZATION Aged Out 11/07/2006 No l onger eligible based on patient's age to complete this topic Pneumococcal Vaccine: Pediatrics (0 to 5 Years) and At-Risk Patients (6 to 49 Years) Aged Out No longer eligible based on patient's age to complete this topic Procedures Procedure Name Priority Date/Time Associated Diagnosis Comments GYNECOLOGIC CYTOLOGY Routine 08/05/2024 12:44 PM CHARACTER ACTOR Encounter for screening for malignant neoplasm of cervix HPV AND GYNECOLOGIC CYTOLOGY PANEL Routine 08/05/2024 12:44 PM CHARACTER ACTOR Encounter for screening for malignant neoplasm of cervix COMPREHENSIVE METABOLIC PANEL STAT 08/15/2023 7:09 PM CHARACTER ACTOR from Last 3 Months or Most Recently Relevant to Health Maintenance Results * HPV and Gynecologic Cytology Panel (08/05/2024 12:44 PM CHARACTER ACTOR) Human Papilloma Virus 16 DNA Negative Negative 08/06/2024 10:28 PM CHARACTER ACTOR [facility] Human Papilloma Virus 18 DNA Negative Negative 08/06/2024 10:28 PM CHARACTER ACTOR [facility] Human Papilloma Virus Other Negative Negative 08/06/2024 10:28 PM CHARACTER ACTOR [facility] FINAL DIAGNOSIS This patient's sample is negative for high risk HPV DNA. METHODOLOGY: The [employer] system uses automated extraction, simultaneous amplification of HPV (E6/E7 oncogenes) and beta-globin, followed by real time detection of fluorescent labeled HPV and beta globin using specific oligonucleotide probes. The test specifically identifies types HPV 16 DNA and HPV 18 DNA while concurrently detecting the rest of the high risk types (31, 33, 35, 39, 45, 51, 52, 56, 58, 59, 66 or 68). COMMENTS: This test is not intended for use as a screening device for woman under age 30 with normal cervical cytology. Results should be correlated with cytologic and histologic findings. Close clinical follow up is recommended. Please see the separate Gynecologic Cytology (Pap) report from the same collection date. 08/06/2024 10:28 PM CHARACTER ACTOR [facility] Brushing VAGINAL STRUCTURE / Unknown Non-blood Collection / Unknown 08/05/2024 12:44 PM CHARACTER ACTOR 08/06/2024 7:29 AM CHARACTER ACTOR us Conner Fernandez MD LAB - BLOOD ORDERABLE S Final Result [facility] Lab [address] [facility], [address] [phone] MOLECULAR DIAGNOSTICS Molecular Diagnostics [address] [facility], Room [address] [address] * Gynecologic Cytology (PAP) (08/05/2024 12:44 PM CHARACTER ACTOR) Interpretation Negative for Intraepithelial Lesion or Malignancy (NILM) 08/11/2024 1:[address] [facility] Comment Papanicolaou Test Limitations: Cervical cytology is a screening test with limited sensitivity, and regular screening is critical for cancer prevention. Pap tests are primarily effective for the diagnosis/prevent ion of squamous cell carcinoma, not adenocarcinoma or other cancers. 08/11/2024 1:17 PM CHARACTER ACTOR [facility] Specimen Adequacy Satisfactory for evaluation, endocervical/madden sformation zone component absent 08/11/2024 1:17 PM CHARACTER ACTOR [facility] Clinical Information complete hysterectomy 08/11/2024 1:17 PM CHARACTER ACTOR [facility] LMP/Menopause Date hyst 08/11/2024 1:17 PM CHARACTER ACTOR [facility] Previous Abnormal? No 08/11/2024 1:17 PM CHARACTER ACTOR [facility] Previous Abnormal Diagnosis negative 08/11/2024 1:17 PM CHARACTER ACTOR [facility] Performing Labs The technical component of this testing was completed at [facility]. Stain controls for all stains resulted within this report have been reviewed and show appropriate reactivity. 08/11/2024 1:17 PM CHARACTER ACTOR [facility] Associated HPV Report Please see the associated HPV High Risk Types DNA Cervical report for Specimen [id number] from the same collection date. 08/11/2024 1:17 PM CHARACTER ACTOR [facility] Brushing VAGINAL STRUCTURE / Unknown Non-blood Collection / Unknown 08/05/2024 12:44 PM CHARACTER ACTOR 08/06/2024 1:33 PM CHARACTER ACTOR Conner Fernandez MD LAB - BEAKER AP Final Result [facility] Special[facility] [address] [facility], [address] [id number] * (ABNORMAL) Comprehensive metabolic panel (08/15/2023 7:09 PM CHARACTER ACTOR) Sodium 142 135 - 145 mmol/L 08/15/2023 7:41 PM CHARACTER ACTOR [facility] Comment:Reference intervals for this test were updated on 03/13/2023 to more accurately reflect our healthy population. There may be differences in the flagging of prior results with similar values performed with this method. Interpretation of those prior results can be made in the context of the updated reference intervals. Potassium 3.7 3.4 - 5.3 mmol/L 08/15/2023 7:41 PM CHARACTER ACTOR [facility] Carbon Dioxide (CO2) 17(L) 22 - 29 mmol/L 08/15/2023 7:41 PM CHARACTER ACTOR [facility] Anion Gap 22(H) 7 - 15 mmol/L 08/15/2023 7:41 PM CHARACTER ACTOR [facility] Urea Nitrogen 9.5 6.0 - 20.0 mg/dL 08/15/2023 7:41 PM CHARACTER ACTOR [facility] Creatinine 0.79 0.51 - 0.95 mg/dL 08/15/2023 7:41 PM CHARACTER ACTOR [facility] GFR Estimate >90 >60 mL/min/1. 73m2 08/15/2023 7:41 PM CHARACTER ACTOR [facility] Calcium 9.0 8.6 - 10.0 mg/dL 08/15/2023 7:41 PM CHARACTER ACTOR [facility] Chloride 103 98 - 107 mmol/L 08/15/2023 7:41 PM CHARACTER ACTOR [facility] Glucose 119(H) 70 - 99 mg/dL 08/15/2023 7:41 PM CHARACTER ACTOR [facility] Alkaline Phosphatase 61 40 - 150 U/L 08/15/2023 7:41 PM CHARACTER ACTOR [facility] Comment:Reference intervals for this test were updated on 05/01/2023 to more accurately reflect our healthy population. There may be differences in the flagging of prior results with similar values performed with this method. Interpretation of those prior results can be made in the context of the updated reference intervals. AST 88(H) 0 - 45 U/L 08/15/2023 7:41 PM CHARACTER ACTOR [facility] Comment:Reference intervals for this test were updated on 11/27/2022 to more accurately reflect our healthy population. There may be differences in the flagging of prior results with similar values performed with this method. Interpretation of those prior results can be made in the context of the updated reference intervals. ALT 117(H) 0 - 50 U/L 08/15/2023 7:41 PM CHARACTER ACTOR [facility] Comment:Reference intervals for this test were updated on 11/27/2022 to more accurately reflect our healthy population. There may be differences in the flagging of prior results with similar values performed with this method. Interpretation of those prior results can be made in the context of the updated reference intervals. Protein Total 7.7 6.4 - 8.3 g/dL 08/15/2023 7:41 PM CHARACTER ACTOR [facility] Albumin 4.7 3.5 - 5.2 g/dL 08/15/2023 7:41 PM CHARACTER ACTOR [facility] Bilirubin Total 0.3 <=1.2 mg/dL 08/15/2023 7:41 PM CHARACTER ACTOR [facility] Blood BLOOD SPECIMEN / Unknown Venipuncture / Unknown 08/15/2023 7:09 PM CHARACTER ACTOR 08/15/2023 7:13 PM CHARACTER ACTOR us Marilu Herbert DO LAB - BLOOD ORDERABLES F inal Result [facility] [address] Lab (1st floor, no room number) [place] [address], [place] [phone] from Last 3 Months or Most Recently Relevant to Health Maintenance Insurance [employer] Care Teams Supervisor Wet Pour Relationship Specialty Start Date End Date No Ref-Primary, Physician PCP - General 08/15/23
--- OUTSIDE RECORDS SUMMARY | 2024-08-28 22:42 | XMS_ITS | Continuity of Care Document ---
Author Organization [facility] [employer] WORK[employer] SPECIAL[employer], [id number] Address [address] [facility] [address] [place] [address] Care Team Providers Care Trimming Operator Name Role Phone CONNER FERNANDEZ Primary Care Provider [phone] Assessment No assessment recorded. Plan of Treatment Reminders Order Date Submit Date Provider Last Modified By Organization Details Last Modified Time Details Appointments None record ed. Lab pap, LB + HR HPV 025 08/05/19 25 [facility], [address] [place] [address], [id number], [place], [address], 14:20:04 Referral None record ed. Procedures None record ed. Surgeries None record ed. Imaging None record ed. Medication Orders None record ed. Patient TargetsNo targets recorded. Patient Instructions Encounter Date Encounter Id Patient Instructions Last Modified By Organization Details Last Modified Time 08/05/2024 [id number] learning about depression screening Not available 08/05/2024 12:09:58 learning about m ood disorders [email or web address] Not available 08/05/2024 12:09:58 learning about stress [email or web address] Not available 08/05/2024 12:09:58 breast self-exam : care instructions [email or web address] Not available 08/05/2024 12:09:58 Cervical Cancer Screening: [...] Testing for Inheritable Disorders (Carrier Screening): The [place] [employer] recommends that [...] baby would also need to be tested. Not available 08/04/2024 10:29:55 Foing well [email or web address] Not available 08/16 22:57:58 Reason for Referral None Reported. 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 Procedures Surgical History Date Name Laterality Status Provider Name and Address Organization Details Recorded Time 08/05/19 [facility] Annual Well-Woman Visit age 18-39 [place] [address] [place] [address] completed [facility] [place] [facility] 08/04/2024 10:29:56 09/22/19 21 Date of Last Mammogram completed Penny Duke(TERM) [facility] O[employer] WORKER SPECIALIST 06/14/2021 15:08:00 06/18/19 19 Date of Last Pap Smear completed Penny Wall(TERM) [facility] O[employer] WORK[employer] SPECIALIST 06/14/2021 15:08:25 laparoscopy completed Not Available [facility] 01/22/2020 05:09:21 Imaging Results None recorded. Procedure Notes None recorded. Medical Equipment None [...] No t Available Vitals Date Recorded Body weight Body mass index (BMI) Body height Systolic blood pressure Diastolic blood pressure Provider Name and Address Organization Details Last Updated DateTime 08/05/2024 293975.3 9 g 39 kg/m2 175.26 cm 136 mm[Hg] 84 mm[Hg] Deyanira Beenalini [place] - [employer] 11:45:49 Social History Question Answer Notes LastModified by Organizat ion Details LastModified Time Tobacco Smoking Status Former Smoker Penny Wall(TERM) null, [place] - [employer] 06/07/2021 13:04:28 Do You Have An Advance Directive? No [email or web address] Information not available 06/07/2021 What Is Your [...] Is Your Level Of Caffeine Consumption? Moderate [email or web address] Information not available 06/14/2021 How Much Tobacco Do You Chew? None Information not available 08/04/2024 Are You Currently Employed? Yes Information not available 06/30/2021 Are You Deaf Or Do You Have Serious Difficulty Hearing? No Information not available 08/04/2024 What Type Of Diet Are You Following? REGULAR [email or web address] Information not available 06/07/2021 Do You Or Have You Ever Used E-cigarettes Or Vape? Never Used Electronic Cigarettes Information not available 08/04/2024 What Is The Highest Grade Or Level Of School You Have Completed Or The Highest Degree You Have Received? [id number] Information not available 08/04/2024 What Is Your [...] available 06/30/2021 What Is Your Relationship Status? Information not available 06/07/2021 Do You Use Your Seat Belt Or Car Seat Routinely? Yes [email or web address] Information not available 06/07/2021 Are You Sexually Active? Yes Information not available 06/30/2021 Do You Or Have You Ever Used Smokeless Tobacco? Never Used Smokeless Tobacco Information not available 08/04/2024 How Much Tobacco Do You Smoke? No Information not available 08/04/2024 Do You Feel Stressed (tense, Restless, Nervous, Or Anxious, Or Unable To Sleep At Night)? [id number] Information not available 08/04/2024 Do You Use [...] 08/04/2024 What is your exercise level? Moderate [email or web address] Information not available 06/07/2021 Mental Status Question [...] completed Deyanira Pourrier null, [place] - [employer] 06/30/2021 16:21:21 Tdap 06/25/2017 completed Deyanira Pourrier null, [place] - [employer] 06/30/2021 16:21:20 Tdap 04/01/2019 completed Deyanira Pourrier [place] - [employer] 06/30/2021 16:21:21 Influenza, split virus, quadrivalent, PF 04/01/2019 completed Deyanira Pourrier [place] - [employer] 06/30/2021 16:21:20 Influenza, split virus, quadrivalent, PF 04/02/2017 completed Deyanira Pourrier null, [place] - [employer] 06/30/2021 16:21:21 Past Encounters Encounter ID Performer Location Encounter Start Date Encounter Closed Date Diagnosis/Indication Diagnosis SNOMED-CT Code Diagnosis ICD10 Code Diagnosis Note [id number] Conner Fernandez MD [id number] [facility] [address] [place] [address] 08/05/2024 10:42:40 08/20/2024 10:32:01 Gynecologic examination 38401212 Z01.419 Screening for malignant neoplasm of cervix 653923291 Z12.4 Health Concerns Section Related Observation LastModified by Organization Detai ls LastModified Time None Recorded Concern Status LastModified by Organization Details LastModified Time None Recorded Payers Encounter Date Sequence Insurance Name Policy Number Policy Wooten Covered Member ID Wooten Member ID Guarantor Name 08/05/2024 1 [facility] [id number] Glory Irwin BlackburnEdgarAlexandr heredia [id number] Glory Alida Bere Andrea Notes Date Note Type Note Provider Name and Address Organization Details Recorded Time 08/05/2024 text/html [facility] Annual Well-Women Visit Age 30-39Reported bypatient.Relevant Family History:no family history of breast cancer; no family history of ovarian cancer; no family history of uterine cancer; no family history of colon cancer; no family history of blood clots/DVT Last Pap smear:last Pap smear was normal; last HPV negative; last Pap smear was done 3 years ago Contraceptive Method:contracepti ve method: N/A hysterectomy Sexually Active:Yes: STI Screen:declines STI testing Menstrual cycle:amenorrhea [place] [address] [facility],[address], [place], [address], [facility] - [facility] [employer] SPECIALIST 08/16/2024 22:59:11 OBGyn Episode No OBEpisode recorded.
--- OUTSIDE RECORDS SUMMARY | 2024-08-28 22:42 | XMS_ITS | Clinical Summary ---
Author Organization [email or web address] [facility] Address [facility] [place] [address] Care Team Providers Care Manager Environmental Health And Safety Name Role Phone Pcp, No Primary Care Provider Unavailabl e Allergies Active Allergy Reactions Criticality Noted Date Comments Oxycodone-Acetaminophen Nausea Only 11/06/2008 Not allergic, but intolerant, causes nausea. Medications levonorgestrel (Mirena) 20 mcg/24 hours (8 yrs) 52 mg intrauterine device (IUD)Indications:U ses contraception Inject 1 Device intrauterin e. 1 Each 3 Active Active Problems Patient Care Coordination No te Formatting of this note migh t be different from the original. There is a resolved Delivery Plan of Care which has been moved to a progress note under Case Management tab dated 07/02/2019 by Mary Harrison RN .................... 07/02/2019 9:33 AM. Problem Noted Date Diagnosed Date Vacuum-assisted vaginal delivery 06/25/2019 [facility] Supervision of high-risk 9 Overview (03/07/2019): [facility] CONSULTATION ON 03/12/19 CONSULT VISIT ALERT: Create and link episode at day of visit . Document in Dating section GA 25w0d by LMP 10/15/18 REASON FOR CONSULT: CMV exposure in ; Review lab results with Dr Pereira TODAY'S APPOINTMENT: MD Consultation PRIMARY DIAGNOSIS: 28 y.o. 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 Yes Normal? Yes O positive, antibody screen negative 02/22/19: CMV IGG-0.89 CMV IGM-206.00 AST-25 PERTINENT MEDS: Valtrex Preferred delivery location: [place] PLAN OF CARE: CMV (cytomegalovirus infection) 02/14/2019 09/10/2017 Obesity affecting 09/10/2017 Vaginal delivery 09/10/2017 Immunizations Immunization Administration Dates Next Due Human Papilloma Virus Vaccine 11/07/2006, 007,05/18/2006 Influenza Intradermal PF 18-64 yrs 04/22/2013 Influenza, IIV3 (Age >=3 years) 05/04/2014,05/18 Influenza, IIV4 04/19/2020, 9,04/02/2017,03/06/20 16 Influenza,CCIIV4 PRESERV FREE 04/04/2018 Meningococcal Vaccine (Menomune) 11/07/2006 Tdap 10/10/2022, 9,06/25/2017,01/08/20 11 Family History Medical History Relation Name Comments No Known Problems Daughter [place] Hypertension Father Unknown Maternal Grandfather No Known Problems Maternal Grandmother Cancer Mother Unknown Paternal Grandfather Unknown Paternal Grandmother Rheum arthritis Sister 2 Cancer-breast No Family History Cancer-ovarian No Family History Relation Name Status Comments Daughter [place] Alive Father Alive Maternal Grandfather Maternal Grandmother Alive Mother (Age 63) lung cance r Paternal Grandfather Paternal Grandmother Sister 1 Alive Sister 2 Alive Social History Tobacco Use Types Packs/Day Years Used Date Smoking Tobacco: Never Smokeless Tobacco: Never Alcohol Use Standard Drinks/Week Comments Yes 0 (1 standard drink = 0.6 oz pur e alcohol) PHQ-2 Answer Date Recorded PHQ-2 TOTAL SCORE 1 10/10/2022 Social Connections Answer Date Recorded Frequency of Communication with Friends and Fami ly 0 10/10/2022 Financial Resource Strain Answer Date R ecorded Difficulty of Paying Living Expenses 3 10/10/2022 Difficulty of Paying Living Expenses Not on file 10/10/2022 Food Insecurity Answer Date Recorded Worried About Running Out of Food in the Last Ye ar 1 10/10/2022 Transportation Needs Answer Date Record ed Lack of Transportation (Medical) 1 10/10/2022 Housing Stability Answer Date Recorded Unable to Pay for Housing in the Last Year 1 10/10/2022 Comments No Sex and Gender Information Value Date Recorded Sex Assigned at Not on file Legal Sex Female 7:28 AM [employer] Gender Identity Not on file Sexual Orientation Not on file Obstetrics History Para Term AB IAB SAB Ectopic Multiple Livin g Live Births 2 2 2 2 2 Date Outcome GA Total Labor Labor/2nd/3rd Weight Sex Type Anes PTL Heidi A1 A5 Name Clin 2017 Term 38w 5d 4.4 kg (9 lb 11.2 oz) F Vag Epidur al N Livin g 7 8 BG ABIGAIL HERBERT Complications:Shoulder Dysto josiah Delivery Location:[facility] (UTD 2000 MB L&D TRIAGE) 2019 Term 39w 6d M Vag Epidur al N [place] g Dr. Reilly Complications:None Last Filed Vital Signs Vital Sign Reading Time Taken Comments Blood Pressure 120/86 04/19/2023 9:08 AM CDT Pulse 86 04/19/2023 9:08 AM CDT Temperature 36.9 C (98.4 F) 04/19/2023 9:08 AM CDT Respiratory Rate 16 06/27/2019 1:48 PM [employer] Oxygen Saturation 99% 04/19/2023 9:08 AM CDT Inhaled Oxygen Concentration - - Weight 115.7 kg (255 lb) 04/19/2023 9:08 AM CDT Height 174.6 cm (5' 8.75) 04/19/2023 9:08 AM CD T Body Mass Index 37.93 04/19/2023 9:08 AM CDT Plan of Treatment Health Maintenance Due Date Last Done Comments HIV for age 15-65 08/26/2003 Hepatitis C screening for age 18-79 2006 Pap test for age 21-65 2009 Depression screening for age 12+ 10/11/2023 10/10/2022 COVID-19 vaccine series ( season) 2024 Influenza Vaccine (#1) 2024 , 04/01/2019, 04/04/2018, Additional history exists BMI (ht and wt on same day) for age 18+ 04/19/2024 04/19/2023, 10/10/2022 Tetanus booster 10/10/2032 10/10/2022, 03/18, 06/25/2017, Additional history exists Tdap Completed 10/10/2022, 03/18, 06/25/2017, Additional history exists Pneumococcal series for age 6-49 Aged Out No longer eligible based on patient's age to complete this topic Insurance [employer] [id number] [employer] [place] [id number] Advance Directives * Full Code (Latest Code Status on File) Date Activated Date Inactivated Comments 06/24/2019 3:42 PM 06/26/2019 9:55 AM * Full Code Date Activated Date Inactivated Comments 06/24/2019 11:45 AM 06/24/2019 3:42 PM Question Answer Comments Code Status Discussion: Not Discussed * Full Code Date Activated Date Inactivated Comments 09/10/2017 2:39 PM 09/12/2017 2:48 PM Question Answer Comments Code Status Discussion: Not Discussed * Full Code Date Activated Date Inactivated Comments 09/03/2017 1:06 PM 09/03/2017 5:38 PM * Full Code Date Activated Date Inactivated Comments 07/27/2009 3:25 PM 07/27/2009 10:38 PM Care Teams Manager Environmental Health And Safety Relationship Specialty Start Date End Date Pcp, No . PCP - General 10/10/22
[2024-08-28 22:46] VITALS: BP 153/89; PULSE 90; RESP 20; TEMP 36.9; O2SAT 97; BMI 35.4
--- NOTE | 2024-08-28 22:53 | ED.GENADULT ---
HPI - General Adult General Chief complaint: Chest Pain Stated complaint: Chest pain, difficulty breathing Time Seen by Provider: 08/28/24 22:48 History of Present Illness HPI narrative: CC: Chest Pain , Left Arm Pain , Left Upper Back Pain pt. with pain that started on sunday night. pain has waxed and waned . worse tonight. denies cough, fevers, n/v, diarrhea. 34-year-old woman presenting to the emergency department with concern of chest arm and back pain. Has been going on now for nearly 2 days. Occurring in the left chest, waking her out of sleep. Tonight got a little worse and felt tingling all over. Seems to go up and down her back and then into her left arm as well. No relieving or exacerbating factors. Today started to feel little more short of breath as well. Pain is pleuritic. Not positional. No new leg pain or swelling. She does note that often has pain in her shoulders/upper back. If she has pains otherwise she can usually identify a cause and this time the does not appear to be a cause which is understandably concerning. She notes that typically does not complain and has a high pain tolerance. Related Data Home Medications ?Medication ?Instructions ?Recorded ?Confirmed No Known Home Medications 08/28/24 08/28/24 Allergies Allergy/AdvReac Type Severity Reaction Status Date / Time No Known Drug Allergies Allergy Verified 08/28/24 22:48 Review of Systems Status of ROS: Reports: 6 or more systems reviewed and unremarkable except as noted in History and below [facility] Social History Smoking Status: Never smoker Second hand tobacco smoke exposure: No How often do you have a drink containing alcohol: monthly or less AUDIT-C Alcohol total score: 1 Non-prescribed substance use: denies use Exam Narrative: Exam Narrative: Pleasantly direct. Breathing intermittently more labored but not particularly tachypneic. Lungs are clear. Heart in regular rate and rhythm without murmur rub or gallop. Sore to palpation of the left posterior shoulder muscle including trapezius and periscapular. Not really with reproducible anterior chest discomfort. No supraclavicular crepitus. Abdomen is soft and nontender. Extremities are well perfused. No pain to palpation of the legs, negative Homans Const: Vital Signs, click to edit/add: Vital Signs - 24 hr 08/28/24 22:46 08/28/24 23:22 08/29/24 00:16 Temperature 98.5 F Pulse Rate 72 Pulse Rate [Right Pulse Oximeter] 90 Respiratory Rate 20 16 Blood Pressure 118/73 Blood Pressure [Ri ght Upper Arm] 153/89 H Pulse Oximetry 97 97 96 Oxygen Delivery Me thod Room Air 08/29/24 00:17 Temperature Pulse Rate 67 Pulse Rate [Right Pulse Oximeter] Respiratory Rate 16 Blood Pressure 118/73 Blood Pressure [Ri ght Upper Arm] Pulse Oximetry 96 Oxygen Delivery Me thod Room Air Documenting provider has reviewed patient's vital signs: yes Course Vital Signs Vital signs: Initial Vital Signs Temperature 98.5 F 08/28/24 22:46 Temperature Source Temporal Artery Scan 08/28/24 22:46 Pulse Rate 90 08/28/24 22:46 Respiratory Rate 20 08/28/24 22:46 Blood Pressure 153/89 H 08/28/24 22:46 Blood Pressure Mean 110 H 08/28/24 22:46 Blood Pressure Position Sitting 08/28/24 22:46 Pulse Oximetry 97 08/28/24 22:46 Oxygen Delivery Method Room Air 08/28/24 22:46 Vital Signs Temperature 98.5 F 08/28/24 22:46 Pulse Rate 90 08/28/24 22:46 Respiratory Rate 20 08/28/24 22:46 Blood Pressure 153/89 H 08/28/24 22:46 Pulse Oximetry 97 08/28/24 22:46 Oxygen Delivery Method Room Air 08/28/24 22:46 Temperature 98.5 F 08/28/24 22:46 Pulse Rate 67 08/29/24 00:17 Respiratory Rate 16 08/29/24 00:17 Blood Pressure 118/73 08/29/24 00:17 Pulse Oximetry 96 08/29/24 00:17 Oxygen Delivery Method Room Air 08/29/24 00:17 Medications Administered Medications: Discontinued Medications Generic Name Dose Route Start Last Admin Trade Name Freq PRN Reason Stop Dose Admin Ketorolac Tromethamine 30 mg 08/28/24 23:35 08/28/24 23:50 Ketorolac 30 Mg/Ml Inj IVP 08/28/24 23:36 30 mg ONCE ONE Administration Morphine Sulfate 4 mg 08/29/24 00:59 08/29/24 01:04 Morphine 4 Mg/Ml Inj IVP 08/29/24 01:00 4 mg ONCE ONE Administration Ondansetron HCl 4 mg 08/29/24 00:07 08/29/24 00:12 Ondansetron 2 Mg/Ml Inj IVP 08/29/24 00:08 4 mg ONCE ONE Administration Medical Decision Making MDM Narrative Medical decision making narrative: Differential includes ischemic cardiovascular event, dissection, pulmonary embolus, pneumothorax, arrhythmia, pleuritis, less likely pericarditis, radicular muscle pain from the back. She would appreciate something for pain. Will initiate IV and ketorolac. Start with chest x-ray but may need CT imaging. Also Zofran. Monitor property assessment monitor. Wells criteria suggests low risk for PE Chest x-ray independently reviewed by me looks to be WNL without pneumothorax or infiltrate. Normal cardiac silhouette for portable. Labs are entirely reassuring as are vitals. Normal D-dimer. I suspect pleuritis. Discussed differential again and potential further evaluation. Becomes more labored in breathing. Would appreciate something more for pain. Ordered for morphine. She would like to proceed with CT imaging of chest Morphine was helpful at [address] chest by my read looks to show some atelectatic/inflammatory changes in the far left lower lung. Radiology over-read below INDICATION: Left-sided pleuritic chest pain. TECHNIQUE: CT chest PE was acquired with 95 cc Isovue 370 IV contrast. An axial MIP reconstruction was obtained. COMPARISON: None. FINDINGS: Heart and vasculature: Contrast opacification of the pulmonary arterial tree is adequate. No sign of pulmonary embolism. Heart size is normal. Thoracic aorta and pulmonary artery are normal in caliber. Lungs and pleura: No suspicious nodules or infiltrates. Small left pleural effusion with adjacent passive atelectasis of the left lower lobe. No pneumothorax. Lymph nodes/mediastinum: No mediastinal, hilar, or axillary adenopathy. Chest wall: No masses. Upper abdomen: No acute or significant findings. Bones: Unremarkable for age. IMPRESSION: 1. No pulmonary embolism. 2. Small left pleural effusion. Discussed these findings with Glory and her . She is reassured. I suspect this pleural effusion might be related to area inflammation and splinting with resulting atelectasis. The patient discharge plan for further discussion Stay well-hydrated. I would take 400 - 600 mg of ibuprofen 3 times daily maybe with a little food over the next 4-5 days. Alternatives to this might be 375 mg of naproxen 2 times daily. Can add acetaminophen if needed. Can take up to 1000 mg of acetaminophen per dose per As requested am prescribing something a little ?stronger?, an opiate, [place]. Keep in mind that each tablet contains 325 mg of acetaminophen. Be seen for pain lasting a week, marked increase in pain, increasing shortness of breath, associated fever. Medical Records Medical records reviewed: Yes I reviewed the patient's medical records Lab Data Lab results reviewed: Yes I reviewed the patient's lab results Labs: Lab Results 08/28/24 08/28/24 Range/Units 23:03 23:10 WBC 7.46 (4.50-11.00) K/uL RBC 3.82 L (4.00-5.20) m/uL Hgb 12.3 (12.0-16.0) gm/dL Hct 35.5 (33.0-51.0) % MCV 93 (80-100) fL MCH 32 (26-34) pg MCHC 35 (32-36) gm/dL RDW Coeff of Danial 12.1 (11.5-15.5) % Plt Count 183 (140-440) K/uL Neut % (Auto) 55.7 (42.0-72.0) % Lymph % (Auto) 32.0 (20-44) % [place] % (Auto) 8.4 (0.0-11.0) % Eos % (Auto) 2.3 (0.0-7.0) % Baso % (Auto) 0.5 (0.0-3.0) % Neut # (Auto) 4.15 (1.7-7.0) K/uL Lymph # (Auto) 2.39 (0.90-2.90) K/uL [place] # (Auto) 0.60 (0.00-0.90) K/UL Eos # (Auto) 0.17 (0.00-0.50) K/uL Baso # (Auto) 0.04 (0.00-0.30) K/uL Abs Immat Gran (auto) 0.08 (0.00-0.30) K/uL Imm/Tot Granulo (auto) 1.1 % D-Dimer Quant (PE/DVT) 0.40 (0.00-0.50) ug/ml Sodium 136 (135-149) mmol/L Potassium 3.8 (3.6-5.1) mmol/L Chloride 102 (96-114) mmol/L Carbon Dioxide 26 (20-32) mmol/L Anion Gap 8 (7-15) mEq/L BUN 17 (5-24) mg/dL Creatinine 0.9 (0.5-1.5) mg/dL Estimated Creat Clear 90.31 Estimated GFR 85 ml/min Glucose 115 (60-115) mg/dL Calcium 9.0 (8.4-10.6) mg/dL Troponin I < 0.01 L (0.01-0.04) ng/mL NT-Pro-B Natriuret Pep < 20 pg/mL POC Troponin I 0.00 L (0.01-0.04) ng/ml ECG Data Attestation: I personally reviewed and interpreted this ECG as follows: (Normal sinus rhythm. Rate of 85. Without acute ischemic changes.) Discharge Plan Discharge Clinical Impression: Pleuritic chest pain, Small pleural effusion Patient Disposition: Home w/ Parent or Adult Condition: Improved Additional Instructions: Stay well-hydrated. I would take 400 - 600 mg of ibuprofen 3 times daily maybe with a little food over the next 4-5 days. Alternatives to this might be 375 mg of naproxen 2 times daily. Can add acetaminophen if needed. Can take up to 1000 mg of acetaminophen per dose per As requested am prescribing something a little ?stronger?, an opiate, [place]. Keep in mind that each tablet contains 325 mg of acetaminophen. Be seen for pain lasting a week, marked increase in pain, increasing shortness of breath, associated fever. Prescriptions: No Action No Known Home Medications Follow Up/Referrals: Provider,Not a Local [Primary Care Provider] - Stand Alone Forms: [employer] Info Instructions
--- NOTE | 2024-08-28 23:03 | CRLHL7_ITS ---
For Patients: As a result of the Century Cures Act, medical imaging exams and procedure reports are released immediately into your electronic medical record. You may view this report before your referring provider. If you have questions, please contact your health care provider. INDICATION: Left-sided chest pain. TECHNIQUE: Chest 1 view. COMPARISON: 02/21/2022. FINDINGS: Cardiovascular and mediastinum: Heart size and vasculature are normal in caliber and appearance. Lungs and pleural spaces: Lungs are clear. No pleural effusion, or pneumothorax. Bones and soft tissues: Unremarkable for age. IMPRESSION: No evidence of an acute pulmonary process. Dictated by Miguel Ángel Alvarado MD @ 08/28/2024 11:23:21 PM (Electronically Signed)
--- OUTSIDE RECORDS SUMMARY | 2024-08-28 23:10 | XMS_ITS | Clinical Summary ---
Author Organization [place] Address [address] [place] [id number] Care Team Providers Care Churn Operator Margarine Name Role Phone No Ref-Primary, Physician Primary [...] on file Legal Sex Female 3:17 AM FIBER GLASS WORKER Gender Identity Not on file Sexual Orientation Not on file Last Filed Vital Signs Vital Sign Reading Time Taken Comments Blood Pressure 124/88 08/15/2023 10:30 PM F[employer]ER GLASS WORKER Pulse 98 08/15/2023 10:30 PM FIBER GLASS WORKER Temperature 36.9 C (98.4 F) 08/15/2023 6:39 PM F[employer]ER GLASS WORKER Respiratory Rate 11 08/15/2023 10:30 PM F[employer]ER GLASS WORKER Oxygen Saturation 99% 08/15/2023 10:30 PM FIBER GLASS WORKER Inhaled Oxygen Concentration - - Weight 116.1 kg (256 lb) 05/09/2023 11:52 AM FIBER GLASS WORKER Height - - Body Mass Index - [...] Comments GYNECOLOGIC CYTOLOGY Routine 08/05/2024 12:44 PM F[employer]ER [employer]ASS WORKER Encounter for screening for malignant neoplasm of cervix HPV AND GYNECOLOGIC CYTOLOGY PANEL Routine 08/05/2024 12:44 PM F[employer]ER [employer]ASS WORKER Encounter for screening for malignant neoplasm of cervix COMPREHENSIVE METABOLIC PANEL STAT 08/15/2023 7:09 PM FIBER GLASS WORKER from Last 3 Months or Most Recently Relevant to Health Maintenance Results * HPV and Gynecologic Cytology Panel (08/05/2024 12:44 PM FIBER GLASS WORKER) Human Papilloma Virus 16 DNA Negative Negative 08/06/2024 10:28 PM F[employer]ER GLASS WORKER [facility] Human Papilloma Virus 18 DNA Negative Negative 08/06/2024 10:28 PM F[employer]ER [employer]ASS WORKER [facility] Human Papilloma Virus Other Negative Negative 08/06/2024 10:28 PM FIBER GLASS WORKER [facility] FINAL DIAGNOSIS This patient's sample is negative for high risk HPV DNA. METHODOLOGY: The BD Smart Panel system uses automated extraction, simultaneous amplification of [...] the same collection date. 08/06/2024 10:28 PM FIBER GLASS WORKER [facility] DIAGNOSTICS Brushing VAGINAL STRUCTURE / Unknown Non-blood Collection / Unknown 08/05/2024 12:44 PM FIBER GLASS WORKER 08/06/2024 7:29 AM FIBER GLASS WORKER us Conner Fernandez MD LAB - BLOOD ORDERABLE S Final Result [facility] Specialty Lab [address] [facility], [address] [id number] MOLECULAR DIAGNOSTICS Molecular Diagnostics [address] [facility], [address] [id number] * Gynecologic Cytology (PAP) (08/05/2024 12:44 PM FIBER GLASS WORKER) Interpretation Negative for Intraepithelial Lesion or Malignancy (NILM) 08/11/2024 1:17 PM [facility] Comment Papanicolaou Test Limitations: Cervical cytology is a screening test with limited sensitivity, and regular screening is critical for cancer prevention. Pap tests are primarily effective for the diagnosis/prevent ion of squamous cell carcinoma, not adenocarcinoma or other cancers. 08/11/2024 1:17 PM FIBER GLASS WORKER [facility] Specimen Adequacy Satisfactory for evaluation, endocervical/madden sformation zone component absent 08/11/2024 1:17 PM F[employer]ER GLASS WORKER [facility] Clinical Information complete hysterectomy 08/11/2024 1:17 PM F[employer]ER [employer]ASS WORKER [facility] LMP/Menopause Date hyst 08/11/2024 1:17 PM F[employer]ER GLASS WORKER [facility] Previous Abnormal? No 08/11/2024 1:17 PM F[employer]ER GLASS WORKER [facility] Previous Abnormal Diagnosis negative 08/11/2024 1:17 PM FIBER GLASS WORKER [facility] Performing Labs The technical component of this testing was completed at [facility]. Stain controls for all stains resulted within this report have been reviewed and show appropriate reactivity. 08/11/2024 1:17 PM FIBER GLASS WORKER [facility] Associated HPV Report Please see the associated HPV High Risk Types DNA Cervical report for Specimen [id number] from the same collection date. 08/11/2024 1:17 PM FIBER GLASS WORKER [facility] Brushing VAGINAL STRUCTURE / Unknown Non-blood Collection / Unknown 08/05/2024 12:44 PM FIBER GLASS WORKER 08/06/2024 1:33 PM FIBER GLASS WORKER Conner Fernandez MD LAB - BEAKER AP Final Result [facility] Specialty Lab [address] [facility], [address] [phone] * (ABNORMAL) Comprehensive metabolic panel (08/15/2023 7:09 PM FIBER GLASS WORKER) Sodium 142 135 - 145 mmol/L 08/15/2023 7:41 PM FIBER GLASS WORKER [facility] Comment:Reference intervals for this test were updated on 03/13/2023 to more accurately reflect our healthy population. There may be differences in the flagging of prior results with similar values performed with this method. Interpretation of those prior results can be made in the context of the updated reference intervals. Potassium 3.7 3.4 - 5.3 mmol/L 08/15/2023 7:41 PM FIBER GLASS WORK[employer] [facility] Carbon Dioxide (CO2) 17(L) 22 - 29 mmol/L 08/15/2023 7:41 PM F[employer] WORK[employer] [facility] Anion Gap 22(H) 7 - 15 mmol/L 08/15/2023 7:41 PM F[employer]ER GLASS WORKER [facility] Urea Nitrogen 9.5 6.0 - 20.0 mg/dL 08/15/2023 7:41 PM F[employer]ER GLASS WORK[employer] [facility] Creatinine 0.79 0.51 - 0.95 mg/dL 08/15/2023 7:41 PM F[employer]ER GLASS WORKER [facility] GFR Estimate >90 >60 mL/min/1. 73m2 08/15/2023 7:41 PM F[employer]ER GLASS WORKER [facility] Calcium 9.0 8.6 - 10.0 mg/dL 08/15/2023 7:41 PM F[employer]ER GLASS WORKER [facility] Chloride 103 98 - 107 mmol/L 08/15/2023 7:41 PM FIBER GLASS WORKER [facility] Glucose 119(H) 70 - 99 mg/dL 08/15/2023 7:41 PM F[employer]ER [employer]ASS WORK[employer] [facility] Alkaline Phosphatase 61 40 - 150 U/L 08/15/2023 7:41 PM FIBER GLASS WORKER [facility] Comment:Reference intervals for this test were updated on 05/01/2023 to more accurately reflect our healthy population. There may be differences in the flagging of prior results with similar values performed with this method. Interpretation of those prior results can be made in the context of the updated reference intervals. AST 88(H) 0 - 45 U/L 08/15/2023 7:41 PM FIBER GLASS WORKER [facility] Comment:Reference intervals for this test were updated on 11/27/2022 to more accurately reflect our healthy population. There may be differences in the flagging of prior results with similar values performed with this method. Interpretation of those prior results can be made in the context of the updated reference intervals. ALT 117(H) 0 - 50 U/L 08/15/2023 7:41 PM FIBER GLASS WORKER [facility] Comment:Reference intervals for this test were updated on 11/27/2022 to more accurately reflect our healthy population. There may be differences in the flagging of prior results with similar values performed with this method. Interpretation of those prior results can be made in the context of the updated reference intervals. Protein Total 7.7 6.4 - 8.3 g/dL 08/15/2023 7:41 PM F[employer]ER GLASS WORK[employer] [facility] Albumin 4.7 3.5 - 5.2 g/dL 08/15/2023 7:41 PM F[employer] WORK[employer] [facility] Bilirubin Total 0.3 <=1.2 mg/dL 08/15/2023 7:41 PM F[employer]ER [employer]ASS WORKER [facility] Blood BLOOD SPECIMEN / Unknown Venipuncture / Unknown 08/15/2023 7:09 PM F[employer]ER GLASS WORKER 08/15/2023 7:13 PM FIBER GLASS WORKER us Marilu Herbert DO LAB - BLOOD ORDERABLES F inal Result [facility] [address] Lab (1st floor, no room number) [place] [address], [place] [phone] from Last 3 Months or Most Recently Relevant to Health Maintenance Insurance [employer] Care Teams Churn Operator Margarine Relationship Specialty Start Date End Date No Ref-Primary, Physician PCP - General 08/15/23
--- OUTSIDE RECORDS SUMMARY | 2024-08-28 23:10 | XMS_ITS | Clinical Summary ---
Author Organization [facility] Address [facility] [place] [address] Care Team Providers Care Purification Director Name Role Phone Pcp, No Primary Care [...] Date Diagnosed Date Vacuum-assisted vaginal delivery 06/25/2019 [facility] Supervision of high-risk 9 Overview (03/07/2019): [facility] CONSULTATION ON 03/12/19 CONSULT VISIT ALERT: Create [...] AST-25 PERTINENT MEDS: Valtrex Preferred delivery location: [facility] PLAN OF CARE: CMV (cytomegalovirus infection) 02/14/2019 [...] on file Legal Sex Female 7:28 AM OPERATIONAL INTELLIGENCE OFFICER Gender Identity Not on file Sexual Orientation [...] BG ABIGAIL HERBERT Complications:Shoulder Dysto josiah Delivery Location:[facility] (UTD 2000 MB L&D TRIAGE) 2019 Term 39w 6d M Vag Epidur al N [place] g Dr. Reilly Complications:None Last Filed Vital Signs Vital Sign Reading Time Taken Comments Blood Pressure 120/86 04/19/2023 9:08 AM CDT Pulse 86 04/19/2023 9:08 AM CDT Temperature 36.9 C (98.4 F) 04/19/2023 9:08 AM CDT Respiratory Rate 16 06/27/2019 1:48 PM OPERATIONAL INTELLIGENCE OFFICER Oxygen Saturation 99% 04/19/2023 9:08 AM CDT [...] to complete this topic Insurance [employer] [id number] [place] [id number] Advance Directives * Full Code (Latest Code [...] 3:25 PM 07/27/2009 10:38 PM Care Teams Purification Director Relationship Specialty Start Date End Date Pcp, No . PCP - General 10/10/22
--- OUTSIDE RECORDS SUMMARY | 2024-08-28 23:10 | XMS_ITS | Clinical Summary ---
Author Organization [facility] Address [address] [place] [address] Care Team Providers Care Identification Technician Name Role Phone Sonu Mayfield MD Primary Care Provider [phone] Source Comments You are receiving this document as you are listed as the primary care provider,follow-up provider, or the patient has been referred to you for consultation.This is in compliance with the Medicare and[facility] Hospital[facility] EHR Incentive Program,which states Providers who transition their patient to another setting of careor provider of care or refers their patient to another provider of care shouldprovide summary care record for each transition of care or referral. [facility] No known active allergies Medications fluticasone propionate (FLONASE) 50 MCG/ACT nasal solution Place 2 Sprays into both nostrils daily. 16 g 11 10/08/2023 Active Active Problems Problem Noted Date Diagnosed Date Fatty liver 10/08/2023 Overview (10/08/2023): Noted on 08/15/2023 CT through [place]. Encouraged low fat diet and weight loss. Immunizations Immunization Administration Dates Next Due 4vHPV (Gardasil) 11/07/2006,08/23/2006, 6 Flu Vac (18-64 Yrs), Intradermal 04/22/2013 Flu Vac (3+ yrs) 05/04/2014,05/18/2006 Influenza (Flucelvax), Prese rv Free QIV 04/04/2018 Influenza IIV4 (Quadrivalent ) 0.5mL (22693) 04/19/2020,04/01/2019,04/02/2017,2015 MPSV4 (Menomune) 11/07/2006 Tdap 10/10/2022, 9,06/25/2017,2010 [...] Negative (Non Reactive) 10/18/2023 12:55 PM CDT [facility] Comment:Antibodies to HCV no t detected. Does not exclude the possiblity of exposure to HCV. Blood Venipuncture / Unknown 10/18/2023 7:00 AM CDT 10/18/2023 7:00 AM CDT Sonu Mayfield MD LAB_1 Final Result Performing Organization Address [facility] Co de Phone Number [facility] [address] * Hgb A1C (10/18/2023 7:00 AM CDT) Hemoglobin A1C 5.0 <=5.6 % 10/18/2023 2:03 PM CDT [facility] Estimated Average Glucose (Calc) 97 < 117 mg/dL 10/18/2023 2:03 PM T [facility] Comment:Estimated average gl ucose (eAG) converts A1c into glucose units (mg/dL) and estimates average glucose over the past approximately 3 months. The eAG reference interval (<117 mg/dL) corresponds to an A1c of <5.7%. Blood Venipuncture / Unknown 10/18/2023 7:00 AM CDT 10/18/2023 7:00 AM CDT Sonu Mayfield MD LAB_1 Final Result Performing Organization Address [facility] de Phone Number [facility] [address] from Last 3 Months or Most Recently Relevant to Health Maintenance Insurance [employer] Care Teams Identification Technician Relationship Specialty [place] [id number] [place] [address] PCP - General Family Practice 10/08/23
[2024-08-28 23:21] LABS: Basophils Absolute Auto 0.04 K/uL (0.00-0.30); Basophils Percent Auto 0.5 % (0.0-3.0); Eosinophils Absolute Auto 0.17 K/uL (0.00-0.50); Eosinophils Percent Auto 2.3 % (0.0-7.0); Hematocrit 35.5 % (33.0-51.0); Hemoglobin* 12.3 gm/dL (12.0-16.0); Immature Granulocytes Abs Auto 0.08 K/uL (0.00-0.30); Immature Granulocytes Pct Auto 1.1 %; Lymphocytes Absolute Auto 2.39 K/uL (0.90-2.90); Mean Corpuscular HGB Conc 35 gm/dL (32-36); Mean Corpuscular Hemoglobin 32 pg (26-34); Mean Corpuscular Volume 93 fL (80-100); Monocytes Percent Auto 8.4 % (0.0-11.0); Neutrophils Absolute Auto 4.15 K/uL (1.7-7.0); Neutrophils Percent Auto 55.7 % (42.0-72.0); Platelet Count* 183 K/uL (140-440); RDW Coefficient of Variation % 12.1 % (11.5-15.5); Red Blood Count 3.82 m/uL (4.00-5.20); White Blood Count* 7.46 K/uL (4.50-11.00)
[2024-08-28 23:22] VITALS: O2SAT 97
[2024-08-28 23:26] LABS: Slide Review Reflex No
[2024-08-28 23:38] LABS: Chloride* 102 mmol/L (96-114)
[2024-08-28 23:39] LABS: Potassium* 3.8 mmol/L (3.6-5.1); Sodium* 136 mmol/L (135-149)
[2024-08-28 23:42] LABS: Anion Gap 8 mEq/L (7-15); Blood Urea Nitrogen* 17 mg/dL (5-24); Carbon Dioxide* 26 mmol/L (20-32); Creatinine* 0.9 mg/dL (0.5-1.5); Est. Creatinine Clearance* 90.31; Estimated Glomerular Filt Rate 85 ml/min; Glucose* 115 mg/dL (60-115)
[2024-08-28] MEDS: KETOROLAC 30 MG/ML inj IVP (23:50)
[2024-08-28 23:53] LABS: NT Pro B Type NatriureticPept* < 20 pg/mL
[2024-08-29] LABS: Troponin I* < 0.01 ng/mL (0.01-0.04)
[2024-08-29] MEDS: ONDANSETRON 2 MG/ML inj 4 MG IVP (00:12)
[2024-08-29 00:16] VITALS: BP 118/73; PULSE 72; RESP 16; O2SAT 96
[2024-08-29 00:17] VITALS: BP 118/73; PULSE 67; RESP 16; O2SAT 96
--- NOTE | 2024-08-29 00:57 | CRLHL7_ITS ---
For Patients: As a result of the Century Cures Act, medical imaging exams and procedure reports are released immediately into your electronic medical record. You may view this report before your referring provider. If you have questions, please contact your health care provider. INDICATION: Left-sided pleuritic chest pain. TECHNIQUE: CT chest PE was acquired with 95 cc Isovue 370 IV contrast. An axial MIP reconstruction was obtained. COMPARISON: None. FINDINGS: Heart and vasculature: Contrast opacification of the pulmonary arterial tree is adequate. No sign of pulmonary embolism. Heart size is normal. Thoracic aorta and pulmonary artery are normal in caliber. Lungs and pleura: No suspicious nodules or infiltrates. Small left pleural effusion with adjacent passive atelectasis of the left lower lobe. No pneumothorax. Lymph nodes/mediastinum: No mediastinal, hilar, or axillary adenopathy. Chest wall: No masses. Upper abdomen: No acute or significant findings. Bones: Unremarkable for age. IMPRESSION: 1. No pulmonary embolism. 2. Small left pleural effusion. Please note that all CT scans at this facility use dose modulation, iterative reconstruction, and/or weight-based dosing when appropriate to reduce radiation dose to as low as reasonably achievable. Dictated by Miguel Ángel Alvarado MD @ 08/29/2024 1:46:26 AM (Electronically Signed)
[2024-08-29] MEDS: MORPHINE 4 MG/ML INJ IVP (01:04)
[2024-08-29 02:27] VITALS: BP 118/73; PULSE 85; RESP 16; TEMP 36.9; O2SAT 96
[2024-08-29 02:28] VITALS: BP 118/73; PULSE 85; RESP 16; TEMP 36.9
--- NOTE | 2024-09-05 14:28 | ED.NURSE ---
Contacted patient due to Richard reaching out to Pharmacy about a recall on the [place] that was prescribed to her. Pt made aware that [facility] would be calling her to inform her of the plan to remedy this problem.
== END 2024-08-29 02:28 | disposition home or self-care (01) ==
PROVIDERS: Emergency Provider Family Medicine
DX: R07.9 Chest pain, unspecified (principal); J90 Pleural effusion, not elsewhere classified
CPT/HCPCS: 36415; 71045; 71275; 80048; 83880; 84484; 85025; 85379; 93005; 94761; 96374; 96375; 99284; 99285; J1885; J2270; J2405; Q9967